=== PATIENT | female | born 1965 | race Caucasian/White ===

== ENCOUNTER 2018-04-25 10:42 | Emergency (ER) | payer BC ==
[~2018-04-25] VITALS: Ht 154.9 cm; Wt 80.5 kg
[~2018-04-25 10:42] MED LIST: CALCIUM + D 6001 TA1 PO; CLARITIN10 MG PO; FEMARA 2.5MG2.5 MG PO; IBUPROFEN400 MG PO; MULTIPLE VITAMI1 CAP PO; VITAMIN E1000 U/CAP PO; ZYRTEC10 MG PO
[2018-04-25 10:45] VITALS: BP 177/89
[2018-04-25] MEDS ORDERED: ALLEGRA 60MG TA60 MG PO (10:59)
[2018-04-25] MEDS ORDERED: CELEXA 20MG20 MG/TAB PO (11:04)
[2018-04-25] MEDS ORDERED: PRINIVIL5 MG PO (11:04)
[2018-04-25] MEDS ORDERED: OMEGA-3 1000 MG1 CAP PO (11:05)
[2018-04-25] MEDS ORDERED: ZOCOR 20MG20 MG PO (11:05)
[2018-04-25 11:09] LABS: BASO # 0.1 (0.0-0.2); BASO % 0.6 % (0.0-2.0); EOS # 0.6 (0.0-0.7); EOS % 6.3 % (0-4.0); GRAN # 5.8 (1.4-6.5); GRAN % 65.3 % (42.2-75.2); HEMATOCRIT 42.7 % (37.0-47.0); HEMOGLOBIN 13.9 g/dl (12.5-16.0); LYMPH # 1.7 (1.2-3.4); LYMPH % 19.6 % (20.0-51.0); MEAN CELL VOLUME 91 fl (80.0-100.0); MEAN CORPUSCULAR HEMOGLOBIN 30 pg (27.0-31.0); MEAN CORPUSCULAR HGB CONC 33 g/dl (33.0-37.0); MONO # 0.7 (0.1-0.6); MONO % 7.7 % (1.7-9.3); PLATELET COUNT 301 K/mm3 (130-400); RED BLOOD COUNT 4.69 M/mm3 (4.10-5.30); REDCELL DISTRIBUTION WIDTH-CV 14.5 % (11.5-14.5)
[2018-04-25 11:19] LABS: INR 0.9 (0.8-3.0); PROTHROMBIN TIME 10.4 SECONDS (9.7-12.8)
[2018-04-25 11:21] LABS: ALANINE AMINOTRANSFERASE 31 U/L (9-52); ALBUMIN 4.1 gm/dL (3.5-5.0); ALKALINE PHOSPHATASE 69 U/L (50-136); ANION GAP 14 mmol/L (7-16); AST,SGOT 35 U/L (15-37); BILIRUBIN,TOTAL 0.4 mg/dL (0.0-1.0); BLOOD UREA NITROGEN 15 mg/dL (7-17); CALCIUM 9.8 mg/dL (8.4-10.2); CARBON DIOXIDE 26 mmol/L (22-30); CHLORIDE 104 mmol/L (98-107); CREATININE, serum 0.73 mg/dL (0.52-1.25); GLUCOSE 142 mg/dL (74-106); PARTIAL THROMBOPLASTIN TIME 30.8 SECONDS (26.0-37.0); POTASSIUM 4.7 mmol/L (3.4-5.0); SODIUM 144 mmol/L (137-145); TOTAL PROTEIN 8.1 gm/dL (6.4-8.2)
[2018-04-25 11:37] LABS: TROPONIN-I < 0.012 ng/mL (0.000-0.034)
[2018-04-25 14:01] VITALS: PULSE 72; TEMP 97.8
== END 2018-04-25 13:55 | disposition home or self-care (01) ==
LOC: COL.ER 10:42
PROVIDERS: Family Medicine
DX: R09.1 Pleurisy (principal); Z85.3 Personal history of malignant neoplasm of breast
CPT/HCPCS: J1885

== ENCOUNTER 2018-05-11 08:38 | Day surgery (SDC) | payer BC ==
[~2018-05-11] VITALS: Ht 154.9 cm; Wt 79.9 kg
[~2018-05-11 08:38] MED LIST changes: +ALLEGRA 60MG TA60 MG PO; +CELEXA 20MG20 MG/TAB PO; +OMEGA-3 1000 MG1 CAP PO; +PRINIVIL5 MG PO; +ZOCOR 20MG20 MG PO
[2018-05-11 09:34] VITALS: BP 136/98; PULSE 108; TEMP 98.2
[2018-05-11] MEDS ORDERED: IBU600 MG PO (09:57)
[2018-05-11 10:34] VITALS: BP 139/91; PULSE 82; TEMP 98.8
[2018-05-11 10:49] VITALS: BP 115/84; PULSE 81
[2018-05-11 11:04] VITALS: BP 121/85; PULSE 74
[2018-05-11 11:19] VITALS: BP 120/81; PULSE 66
== END 2018-05-11 11:35 | disposition home or self-care (01) ==
LOC: SDCO 08:38
DX: Z12.11 Encounter for screening for malignant neoplasm of colon (principal); K64.0 First degree hemorrhoids; I10 Essential (primary) hypertension; E78.5 Hyperlipidemia, unspecified; E78.00 Pure hypercholesterolemia, unspecified; Z90.710 Acquired absence of both cervix and uterus; Z90.10 Acquired absence of unspecified breast and nipple; Z88.0 Allergy status to penicillin; Z88.5 Allergy status to narcotic agent; Z88.8 Allergy status to other drugs, medicaments and biological substances; Z85.3 Personal history of malignant neoplasm of breast
CPT/HCPCS: OP; J2250; J2405; J3010

== ENCOUNTER → 2019-01-25 | Outpatient (CLI) | payer BC ==
[~2019-01-25] MED LIST changes: +IBU600 MG PO
== END ==
LOC: COL.RAD 11:16
DX: C50.411 Malignant neoplasm of upper-outer quadrant of right female breast (principal)

== ENCOUNTER → 2019-09-07 | Outpatient (CLI) | payer BC ==
--- NOTE | 2019-09-05 13:24 | NUR ---
LEFT MESSAGE ON HER MACHINE FOR HER TO CALL BACK TODAY OR TOMORROW
[2019-09-07] VITALS (10 sets, daily range): BP systolic 79–138; BP diastolic 37–96; PULSE 74–136
[~2019-09-07] VITALS: Ht 154.9 cm; Wt 80.9 kg
[~2019-09-07] MED LIST changes: -CALCIUM + D 6001 TA1 PO; +CALCIUM 600MG+D1 TAB PO; +LUTEIN6 MG PO; +MELATIN 3 MG-11 TAB PO; +OMEGA-31 SGL PO; +UBIQUINOL PO; +VITAMIN E 400 U4001 PO
--- NOTE | 2019-09-07 10:00 | NUR ---
Called to US for pt passing out. Pt talking with Dr Singh on arrival. Pt pale and pasty and diaphoretic. Bp and o2 sat monitors placed on pt.
--- NOTE | 2019-09-07 10:01 | NUR ---
Pt color is less pasty continues to be diaphoretic. Pt states she feels weak.
--- NOTE | 2019-09-07 10:06 | NUR ---
pt feels better able to lift head off of pillow. Pt color is pink. Cool wash rag placed on pts neck. Pt wishes to proceed with procedure after talking with Dr Singh.
--- NOTE | 2019-09-07 10:11 | NUR ---
Fluid draining from left lung. Dr Singh states possibly not alot of fluid will come out of lung due to fluid being loculated.
--- NOTE | 2019-09-07 10:15 | NUR ---
Pt color back to normal. Pt reports feeling better. Tube was removed at 1013. Pt sitting on side of bed without difficulty.
--- NOTE | 2019-09-07 10:25 | NUR ---
Pt transported via wheelchair to get chest xray.
[2019-09-07 11:13] LABS: GLUCOSE,PLEURAL FLUID 96 mg/dL; TOTAL PROTEIN,PLEURAL FLUID 4.7 gm/dL
[2019-09-07 11:24] LABS: PLEURAL FLUID RBC 110000 /mm3 (0-0); PLEURAL FLUID WBC 3109 /mm3
[2019-09-07 11:29] LABS: PLEURAL FLUID APPEARANCE BLOODY; PLEURAL FLUID COLOR RED
[2019-09-07 12:36] LABS: CHOLESTEROL-BODY FLUID 82 mg/dL
== END ==
LOC: COL.RAD 08:49
PROVIDERS: Internal Medicine
DX: C50.919 Malignant neoplasm of unspecified site of unspecified female breast (principal); C79.51 Secondary malignant neoplasm of bone; J90 Pleural effusion, not elsewhere classified

== ENCOUNTER → 2019-10-18 | Outpatient (CLI) | payer BC ==
[~2019-10-18] VITALS: Ht 154.9 cm; Wt 81.0 kg
[~2019-10-18] MED LIST changes: +IBRANCE125 MG PO
[2019-10-18 11:51] VITALS: BP 124/91; PULSE 90
[2019-10-18 12:37] VITALS: BP 120/81; PULSE 82
== END ==
LOC: COL.RAD 11:16
DX: C50.411 Malignant neoplasm of upper-outer quadrant of right female breast (principal); C79.51 Secondary malignant neoplasm of bone; R07.9 Chest pain, unspecified

== ENCOUNTER → 2021-05-02 | Outpatient (CLI) | payer BC ==
[~2021-05-02] MED LIST changes: +L-GLUTAMINE500 M5 PO
== END ==
LOC: COL.RAD 12:14
DX: C50.411 Malignant neoplasm of upper-outer quadrant of right female breast (principal); C79.51 Secondary malignant neoplasm of bone; J90 Pleural effusion, not elsewhere classified; J98.11 Atelectasis; Z90.12 Acquired absence of left breast and nipple; Z87.81 Personal history of (healed) traumatic fracture
CPT/HCPCS: Q9967

== ENCOUNTER → 2021-09-20 | Outpatient (CLI) | payer BC ==
[~2021-09-20] VITALS: Ht 154.9 cm; Wt 70.0 kg
[2021-09-20 11:57] VITALS: BP 106/76; PULSE 105; TEMP 98
[2021-09-20 12:41] VITALS: BP 88/63; PULSE 86
== END ==
LOC: COL.RAD 11:46
DX: C50.411 Malignant neoplasm of upper-outer quadrant of right female breast (principal); J90 Pleural effusion, not elsewhere classified
CPT/HCPCS: 19804

== ENCOUNTER → 2021-11-06 | Outpatient (CLI) | payer BC ==
[~2021-11-06] VITALS: Ht 154.9 cm; Wt 69.0 kg
[~2021-11-06] MED LIST changes: +CLARITIN 1010 MG/TAB PO; +OXYCODONE
[2021-11-06 09:40] VITALS: BP 131/87; PULSE 110; TEMP 97.9
[2021-11-06 10:28] VITALS: BP 101/68; PULSE 91
== END ==
LOC: COL.RAD 09:13
DX: C50.411 Malignant neoplasm of upper-outer quadrant of right female breast (principal); J90 Pleural effusion, not elsewhere classified; Z95.9 Presence of cardiac and vascular implant and graft, unspecified
CPT/HCPCS: 19804

== ENCOUNTER 2021-11-26 14:16 | Inpatient (IN) | payer BC ==
[~2021-11-26] VITALS: Ht 154.9 cm; Wt 76.2 kg
[~2021-11-26 14:16] MED LIST changes: -OXYCODONE; +PERCOCET 325 MG1 TA2 PO
[2021-11-26] MEDS ORDERED: TYLENOL 500MG500 MG PO (14:51)
[2021-11-26 16:16] VITALS: BP 120/84; PULSE 93; TEMP 98.5
[2021-11-26 17:40] LABS: MEAN CELL VOLUME 93 fl (80.0-100.0); MEAN CORPUSCULAR HGB CONC 32 g/dl (33.0-37.0); MEAN PLATELET VOLUME 9.8 fl (7.4-10.4); PLATELET COUNT 339 K/mm3 (130-400); RED BLOOD COUNT 3.09 M/mm3 (4.10-5.30); REDCELL DISTRIBUTION WIDTH-CV 18.5 % (11.5-14.5)
[2021-11-26 17:41] LABS: HEMATOCRIT 28.8 % (37.0-47.0); HEMOGLOBIN 9.3 g/dl (12.5-16.0); MEAN CORPUSCULAR HEMOGLOBIN 30 pg (27-31)
[2021-11-26 17:53] LABS: ANISOCYTOSIS 1+; BAND 14 % (0-10); LYMPHOCYTE 11 % (20.0-51.0); NEUTROPHILS 70 % (42.0-75.2); PLATELET ESTIMATE NORMAL (NORMAL)
[2021-11-26 17:58] LABS: ALBUMIN 2.4 gm/dL (3.5-5.0); BILIRUBIN,TOTAL 0.5 mg/dL (0.2-1.2); CALCIUM 8.6 mg/dL (8.4-10.2); CREATININE, serum 0.57 mg/dL (0.57-1.11); POTASSIUM 3.2 mmol/L (3.5-4.5); TOTAL PROTEIN 6.2 gm/dL (6.2-8.1)
--- NOTE | 2021-11-26 19:26 | NUR ---
Patient sitting up in bed and having dinner at shift change. Patient's spouse in the room. No acute distress noted. Call light in reach.
[2021-11-26 20:32] VITALS: BP 108/75; PULSE 98; TEMP 98
[2021-11-26 20:44] VITALS: BP 108/75; PULSE 98; TEMP 98
--- NOTE | 2021-11-26 22:15 | NUR ---
Shift assessment completed. Patient A/Ox4. Patient currently on 3L oxygen via NC. Patient reports having some SOB but feels better with oxygen support. Patient states she tends to breath through mouth and requesting oxygen mask. Oxygen mask provided per patient request. Assiste patient to the bathroom to void. Patient very weak. 1x assist needed for ambulation. Scheduled meds given per JAN. Informed patient about NPO from midnight for possible procedure tomorrow. Patient verbalized understanding. Call light in reach. Will continue to monitor.
[2021-11-26 23:52] VITALS: BP 119/75; PULSE 95; TEMP 97.6
[2021-11-27 05:03] VITALS: BP 126/66; PULSE 92; TEMP 97.5
--- NOTE | 2021-11-27 06:30 | NUR ---
PT LAYING IN BED AWAKE, DENIES ANY PAIN. DOES NOT NEED ANYTHING AT THIS TIME. WILL RETURN FOR ASSESSMENT AND MORNING MEDICATIONS.
[2021-11-27 06:48] LABS: MEAN CELL VOLUME 95 fl (80.0-100.0); MEAN CORPUSCULAR HGB CONC 32 g/dl (33.0-37.0); MEAN PLATELET VOLUME 10.2 fl (7.4-10.4); PLATELET COUNT 363 K/mm3 (130-400); RED BLOOD COUNT 3.25 M/mm3 (4.10-5.30); REDCELL DISTRIBUTION WIDTH-CV 18.6 % (11.5-14.5)
[2021-11-27 06:57] LABS: CALCIUM 8.9 mg/dL (8.4-10.2); CREATININE, serum 0.59 mg/dL (0.57-1.11); MAGNESIUM 2.2 mg/dL (1.6-2.6); POTASSIUM 3.7 mmol/L (3.5-4.5)
[2021-11-27 07:03] LABS: HEMATOCRIT 30.7 % (37.0-47.0); HEMOGLOBIN 9.8 g/dl (12.5-16.0); MEAN CORPUSCULAR HEMOGLOBIN 30 pg (27-31)
[2021-11-27 07:42] LABS: BAND 12 % (0-10); LYMPHOCYTE 5 % (20.0-51.0); NEUTROPHILS 82 % (42.0-75.2); PLATELET ESTIMATE NORMAL (NORMAL)
[2021-11-27 07:43] LABS: ANISOCYTOSIS 1+; OVALOCYTES 1+
[2021-11-27 08:05] VITALS: BP 115/62; PULSE 96; TEMP 97.9
--- NOTE | 2021-11-27 09:27 | NUR ---
industrial services worker met with patient at bedside to discuss discharge plan. Patient reports that she lives at home with her Elver ([phone]) in [place]. Patient reports that she is mainly independent with her activities of daily living but her helps her with showering prn due to her breathing.Patient utilizes walking sticks to assist with ambulation when she feels weak. Patient reports that that she is not on oxygen at home. Patient reports that she does not have a DPOA-HC established at this time or a living will. Patient verbalizes that she would like a form to talk it over with her . Patient reports that she works at a [employer] and can have it notarized. Patient is planning on returning home post dc. Discharge plan: Home.
--- NOTE | 2021-11-27 11:22 | NUR ---
Leigh TORRES and I met with the patient. She was in bed and alert and oriented. Throughout the discussion, patient stated she wanted to get the current problem better controlled then will have an appointment with Dr. Smith to determine treatment options for her cancer. Patient requested we talk with her again once she meets with the finishing area supervisor because that will give her a better idea if she can get a drain placed or not and where to go from here.
[2021-11-27 12:53] VITALS: BP 116/71; PULSE 92; TEMP 97.9
[2021-11-27 17:02] VITALS: BP 109/70; PULSE 107; TEMP 97.7
--- NOTE | 2021-11-27 19:33 | NUR ---
PT HAD UNEVENTFUL DAY.
[2021-11-27 19:49] VITALS: BP 110/70; PULSE 110; TEMP 99
--- NOTE | 2021-11-27 22:08 | NUR ---
Patient sitting up in bed and finished dinner. Ate about 20% of dinner. Patient denies any pain or discomfort. Denies SOB or N/V. Patient currently on 5L oxygen via oxymask. Breathing even and unlabored. Patient spouse at bedside. Call light in reach. No further needs expressed. Will continue to monitor.
[2021-11-28] VITALS (13 sets, daily range): BP systolic 98–121; BP diastolic 63–84; PULSE 90–105; TEMP 97.7–98.4
--- NOTE | 2021-11-28 09:25 | NUR ---
Patient watching TV upon entering the room. Scheduled medications given. Shift assessment performed. Patient currently requiring 6L of O2 via oxymask. Desats upon exertion. Denies any pain, discomfort, or further needs a this time. Call light in reach. Fall percautions in place. VSS. Patient A&O.
[2021-11-28 09:29] LABS: MEAN CELL VOLUME 97 fl (80.0-100.0); MEAN CORPUSCULAR HGB CONC 31 g/dl (33.0-37.0); MEAN PLATELET VOLUME 9.7 fl (7.4-10.4); PLATELET COUNT 370 K/mm3 (130-400); RED BLOOD COUNT 3.09 M/mm3 (4.10-5.30); REDCELL DISTRIBUTION WIDTH-CV 18.8 % (11.5-14.5)
[2021-11-28 09:32] LABS: HEMOGLOBIN 9.2 g/dl (12.5-16.0); MEAN CORPUSCULAR HEMOGLOBIN 30 pg (27-31)
--- NOTE | 2021-11-28 09:35 | NUR ---
SPO2 93% ON 5 LPM NC AT REST.
[2021-11-28 09:44] LABS: CALCIUM 8.6 mg/dL (8.4-10.2); CREATININE, serum 0.57 mg/dL (0.57-1.11); POTASSIUM 3.2 mmol/L (3.5-4.5)
[2021-11-28 11:26] LABS: BAND 1 % (0-10); LYMPHOCYTE 8 % (20.0-51.0); NEUTROPHILS 85 % (42.0-75.2)
[2021-11-28 11:27] LABS: ANISOCYTOSIS 2+; HYPOCHROMIA 3+; PLATELET ESTIMATE NORMAL (NORMAL)
[2021-11-28] MEDS ORDERED: ZITHROMAX500 M2 PO (12:35)
[2021-11-28] MEDS ORDERED: PROVENTIL0.09 MG/A1 IH (12:36)
[2021-11-28] MEDS ORDERED: PREDNISONE20 MG PO (12:37)
[2021-11-28 12:46] LABS: PLEURAL FLUID RBC 4000 /mm3 (0-0); PLEURAL FLUID WBC 884 /mm3
[2021-11-28 13:01] LABS: PLEURAL FLUID APPEARANCE CLEAR; PLEURAL FLUID COLOR YELLOW
--- NOTE | 2021-11-28 14:30 | NUR ---
SPO2 ON 5 LPM 96%, O2 TURNED OFF X 10 MIN. SPO2 80% @ REST IN BED. O2 BACK ON @ 5 LPM. PT RECOVERED TO 93-94% WITHIN A MINIUTE OR TWO. PT RESP LESS LABORED.
--- NOTE | 2021-11-28 16:09 | NUR ---
RT notifed SW of patient needing to go home with 5L o2. SW met with the patient and patient's about which DME agency they would like to go with. Agreement made for [facility]. Contact made with [facility] and rep. Teresita states that they are very low on supplies and she does not have staff to deliver supplies. Teresita reports that they will not be able to help this patient at this time. [facility] contacted and referral information faxed. Patient states that she has met her deductible and OOP due to her chemo so cost will not be an issue.
--- NOTE | 2021-11-28 17:01 | NUR ---
Loc with [facility] calls to state that someone will be by to drop off a tank for the patient to discharge home with and that the oop expense for the patient would be $80.00. Notified patient's RN of the above.
--- NOTE | 2021-11-28 17:26 | NUR ---
Patient had an ok day. Had a thoracentesis, tolerated well. VSS. Patient deemed fit for discharge. Gama Cath DC'd, no signs of complications. Discharge education/instructions given. All questions answered. Patient denies any pain, discomfort, SOA, or further needs at this time. Currently requiring 5L of O2 via nasal cannula. Family to transport home.
== END 2021-11-28 18:00 | disposition home or self-care (01) | DRG 597 ==
LOC: MEDICAL 14:16
PROVIDERS: Physician Assistant; ADMIT Internal Medicine
PROC: 0W9B3ZZ Drainage of Left Pleural Cavity, Percutaneous Approach (ICD-10-PCS; principal; 2021-11-28)
DX: C50.912 Malignant neoplasm of unspecified site of left female breast (principal); J96.01 Acute respiratory failure with hypoxia; C79.51 Secondary malignant neoplasm of bone; J91.0 Malignant pleural effusion; C78.02 Secondary malignant neoplasm of left lung; C78.01 Secondary malignant neoplasm of right lung; I10 Essential (primary) hypertension; E78.5 Hyperlipidemia, unspecified; F32.A Depression, unspecified; Z66 Do not resuscitate; Z20.822 Contact with and (suspected) exposure to COVID-19
CPT/HCPCS: 99223-AI; 99233-AI; 99239; J1644; J7512

== ENCOUNTER 2021-12-02 10:27 | Inpatient (IN) | payer BC ==
[~2021-12-02] VITALS: Ht 154.9 cm; Wt 66.7 kg
[~2021-12-02 10:27] MED LIST changes: +PREDNISONE20 MG PO; +PROVENTIL0.09 MG/A1 IH; +TYLENOL 500MG500 MG PO; +ZITHROMAX500 M2 PO
[2021-12-11] VITALS (10 sets, daily range): BP systolic 103–147; BP diastolic 57–93; PULSE 55–102; TEMP 97.8–98.7
--- NOTE | 2021-12-11 09:40 | NUR ---
The patient ambulated back to [place] 4 independently using a steady gait and appeared to tolerate the activity well. Vital signs obtained. Consent signed. Port a catheter accessed with a 1 in diane needle with good blood return. Labs obtianed as ordered. Chest x-ray obtained. Call light is within reach. brought back to be at her bedside. Will continue to monitor the patient.
[2021-12-11 09:47] LABS: BASO % 0.2 % (0.0-2.0); EOS # 0.1 K/mm3 (0.0-0.7); EOS % 0.7 % (0.0-4.0); GRAN # 13.1 K/mm3 (1.4-6.5); HEMATOCRIT 37.8 % (37.0-47.0); HEMOGLOBIN 11.5 g/dl (12.5-16.0); LYMPH % 6.2 % (20.0-51.0); MEAN CELL VOLUME 97 fl (80.0-100.0); MEAN CORPUSCULAR HEMOGLOBIN 30 pg (27-31); MEAN CORPUSCULAR HGB CONC 30 g/dl (33.0-37.0); MEAN PLATELET VOLUME 9.2 fl (7.4-10.4); MONO # 1.1 K/mm3 (0.1-0.6); PLATELET COUNT 491 K/mm3 (130-400); RED BLOOD COUNT 3.88 M/mm3 (4.10-5.30); REDCELL DISTRIBUTION WIDTH-CV 18.8 % (11.5-14.5)
[2021-12-11] MEDS ORDERED: PROVENTIL0.09 MG/A1 IH (10:08)
[2021-12-11] MEDS ORDERED: ZITHROMAX500 M2 PO (10:09)
[2021-12-11 10:15] LABS: CALCIUM 9.1 mg/dL (8.4-10.2); CREATININE, serum 0.68 mg/dL (0.57-1.11); POTASSIUM 3.5 mmol/L (3.5-4.5)
[2021-12-11 10:58] LABS: ARTERIAL BLD GAS O2 SATURATION 78.8 % (92-100); ARTERIAL BLD GAS TCO2 CT 25.7; ARTERIAL BLOOD GAS BASE EXCESS 1.3 (-2-2); ARTERIAL BLOOD GAS HCO3 24.7 meq/L (22-26); ARTERIAL BLOOD GAS PCO2 34.9 mmHg (35-45); ARTERIAL BLOOD GAS pH 7.47 (7.35-7.45)
--- NOTE | 2021-12-11 14:36 | NUR ---
PT TO ROOM 322 PER BED WITH REPORT FROM LEX TORRES PACU @1400. PT IS A/O X3 WITH COARSE LUNG SOUNDS, IV TO PORT TO RIGHT CHEST. CHEST TUBE TO LEFT SIDE WITH BLOODY DRAINAGE IN CHEST TUBE CONTAINER TO AIR LOCK. VSS, AT BEDSIDE.
--- NOTE | 2021-12-11 18:59 | NUR ---
750 MLS DRAINAGE IN CHEST TUBE CONTAINER.
--- NOTE | 2021-12-11 19:08 | NUR ---
RECEIVED CHANGE OF SHIFT REPORT FROM DAY SHIFT RN.
[2021-12-12] VITALS: BP 119/79; PULSE 77; TEMP 98.1
[2021-12-12 03:34] VITALS: BP 105/69; PULSE 73; TEMP 98.4
--- NOTE | 2021-12-12 07:21 | NUR ---
CHANGE OF SHIFT REPORT GIVEN TO DAY SHIFT RNBRADLY.
[2021-12-12 08:00] VITALS: BP 117/67; PULSE 70; TEMP 98.2
--- NOTE | 2021-12-12 08:00 | NUR ---
PATIENT IS A&O AND SITTING UP IN BED WITH BREAKFAST TRAY. LEFT SIDE CHEST TUBE TO DD WITH PINK DRAINAGE NOTED, DSG IS CD&I. RIGHT LUNG HUITRON HAVE COURSE CRACKLES, LEFT UPPER LOBE CLEAR WITH FC HEARD IN BASES. NO COUGHING NOTED THIS AM. PATIENT ON 4L WHICH IS DOWN FROM THE PREVIOUS 6L YESTERDAY, SATS IN MID TO UPPER 90'S. PATIENT DENIES PAIN OR SOA. STAND BY ASSIST WITH ACTIVITY. NO C/O N/V. IV FLUIDS INFUSING VIA PUMP INTO RIGHT PORT. HEAD TO TOE ASSESSMENT COMPLETE. AM MEDS GIVEN. NO OTHER NEEDS AT THIS TIME. CALL LIGHT IN REACH.
--- NOTE | 2021-12-12 10:25 | NUR ---
Initial visit; Sally thanked Patient Care Secretary for looking in on her and offering comfort, prayer and God's blessings. Patient Care Secretary will keep Sally in her prayers and will follow up.
[2021-12-12 10:26] VITALS: BP 112/66; PULSE 76; TEMP 98.1
--- NOTE | 2021-12-12 13:32 | NUR ---
animal control licensing worker met with patient to discuss discharge plan. Patient lives with her Elver ([phone]) in [place]. Patient is mostly independent with her activities of daily living only receiving assistance from when she feels it's needed. Patient does not utilize any DME to assist with mobility. Patient was established with [facility] due her visit two weeks ago and that has been going well. PCO is Dr. Gutierrez and she utilizes [facility] for medications with no cost difficulty. Patient reports that she has not filled out the DPOA-HC form that she was given during her last stay. Patient is planning on returning home postdischarge with no concerns at this time. Discharge plan: Home with
[2021-12-12 16:28] VITALS: BP 11/75; BP 111/75; PULSE 95; TEMP 98.8
[2021-12-12 20:00] VITALS: BP 118/69; PULSE 105; TEMP 99.2
[2021-12-13] VITALS: BP 131/77; PULSE 68; TEMP 98.4
--- NOTE | 2021-12-13 01:48 | NUR ---
Scheduled medications given. Shift assessment performed. Chest tube in place with dependant drainage. Dressing CDI. Gama Cath accessed, flushes with good blood return. VSS. Patient A&O. Patient does state that she had slight chest pressure. Air movement noted in all lung horowitz. Will continue to monitor. Call light in reach.
[2021-12-13 03:54] VITALS: BP 128/70; PULSE 70; TEMP 98
--- NOTE | 2021-12-13 06:30 | NUR ---
Report received from MELISSA Nelson. PT in bed resting, denies needs, will continue to monitor.
--- NOTE | 2021-12-13 07:00 | NUR ---
Report received from MELISSA Nelson. Pt has IVF to [facility] PAC will finish bag and then INT per orders. Pt c/o presssure to left chest at 1/10 that she states is not pain. L chest tube site is CDI and occlusive, draining to water seal pink clear fluid. Taking PO well, using commode. Instructed on IS use, pt states she is coughing often and has minimal thin clear output. Will continue to monitor.
[2021-12-13 08:06] VITALS: BP 112/68; PULSE 85; TEMP 97.8
--- NOTE | 2021-12-13 09:59 | NUR ---
Follow-up visit; Patient thanked Price Analyst for looking in on her, visiting about her wesley and wishing her well and offering God's blessings.
[2021-12-13 11:13] VITALS: BP 118/69; PULSE 76; TEMP 98.6
[2021-12-13 15:18] VITALS: BP 114/68; PULSE 76; TEMP 98.8
--- NOTE | 2021-12-13 17:49 | NUR ---
Pt has done well over shift, resting in bed but able to get up with therapy and do ADLs. Resting, pain is well controlled with tylenol, saturations rechecked this evening and at 94% on 2LNC so doing well, pt doing IS hourly and able to get it to 750ml/hr. CHest tube output 180mls over shift. Will give report to nightshift nurse who will reusme care.
[2021-12-13 20:04] VITALS: BP 106/77; PULSE 80; TEMP 98.4
--- NOTE | 2021-12-13 22:59 | NUR ---
PATIENT DOING WELL THROUGHOUT SHIFT. DENIES PAIN. CHEST TUBE WITH OCCLUSIVE DRESSING WITH YELLOW DRAINAGE OUT. 2 L 02 VIA NC. SCHEDULED MEDICATIONS GIVEN. SCDS IN PLACE.
[2021-12-14 00:07] VITALS: BP 133/76; PULSE 69; TEMP 98
[2021-12-14 04:04] VITALS: BP 106/74; PULSE 75; TEMP 97.8
--- NOTE | 2021-12-14 08:15 | NUR ---
Patient up to the bathroom. Steady on her feet. Voided. Chest tube to Left chest to DD. Dressing CDI. Tyelnol as scheduled for pain. Pain to her Left chest, she reports not worse with movement. She using her IS regularly & correctly. Vss on O2. We did discussed her lower BP. Will Monitor
[2021-12-14 08:21] VITALS: BP 100/74; PULSE 76; TEMP 97.4
--- NOTE | 2021-12-14 10:01 | NUR ---
Patient up ambulating the halls with therapy.
--- NOTE | 2021-12-14 11:27 | NUR ---
rounded. Chest tube was removed & plan of care reviewed. Will monitor.
[2021-12-14 12:20] VITALS: BP 114/66; PULSE 79; TEMP 97.9
--- NOTE | 2021-12-14 14:18 | NUR ---
Patient reports pain much improved since chest tube removed & she reports she is able to get IS to 1000 consistently now. She is on her shell. She did well with lunch. No other needs at this time.
[2021-12-14 15:26] VITALS: BP 110/68; PULSE 87; TEMP 98.7
--- NOTE | 2021-12-14 17:16 | NUR ---
Patient resting in bed. Reports pain continues to improve. No needs. Will monitor.
[2021-12-14 19:51] VITALS: BP 119/73; PULSE 83; TEMP 98.3
--- NOTE | 2021-12-14 22:37 | NUR ---
PATIENT ALERT AND ORIENTED. DENIES PAIN. CHEST TUBE SITE CDI WITH OCCLUSIVE DRESSING. 2 L O2 MAINTAINED. PORTACATH TO R CHEST. SCHEDULED MEDS ADMINISTERED.
[2021-12-15 00:17] VITALS: BP 113/67; PULSE 71; TEMP 98
[2021-12-15 03:40] VITALS: BP 110/72; PULSE 67; TEMP 98
[2021-12-15 07:16] VITALS: BP 114/57; PULSE 73; TEMP 98.4
--- NOTE | 2021-12-15 09:01 | NUR ---
PT RESTING IN BED EATING BREAKFAST. DRESSING TO LEFT CHEST TUBE SITE CDI WITH GAUZE OVER SITE. PT DENIES PAIN OR NEEDS THIS AM. PT PLANNING ON DISCHARGING HOME LATER THIS DAY.
[2021-12-15 10:55] VITALS: BP 117/76; PULSE 90; TEMP 98.3
--- NOTE | 2021-12-15 13:22 | NUR ---
DISCHARGE INSTRUCTIONS REVIEWED WITH PT. QUESTIONS SOLICITED AND ANSWERED. PT LEFT UNIT BY WHEEL CHAIR WITH STAFF. PORT LOCKED WITH HEPARIN PER ORDERS.
== END 2021-12-15 12:44 | disposition home or self-care (01) | DRG 982 ==
LOC: SURG 12-05 10:00 → INPTSU 12-11 08:33 → SURG 12-11 08:33
PROVIDERS: Nurse Anesthetist, Certified Registered; ADMIT Surgery
PROC: 0W9B40Z Drainage of Left Pleural Cavity with Drainage Device, Percutaneous Endoscopic Approach (ICD-10-PCS; 2021-12-11)
PROC: 3E0L4GC Introduction of Other Therapeutic Substance into Pleural Cavity, Percutaneous Endoscopic Approach (ICD-10-PCS; principal; 2021-12-11 10:30)
DX: C50.912 Malignant neoplasm of unspecified site of left female breast (principal); C78.00 Secondary malignant neoplasm of unspecified lung; C79.51 Secondary malignant neoplasm of bone; J91.0 Malignant pleural effusion; I10 Essential (primary) hypertension; E78.5 Hyperlipidemia, unspecified; F32.A Depression, unspecified; Z79.891 Long term (current) use of opiate analgesic; Z90.710 Acquired absence of both cervix and uterus; Z88.4 Allergy status to anesthetic agent; Z88.0 Allergy status to penicillin; Z88.5 Allergy status to narcotic agent; J30.9 Allergic rhinitis, unspecified
CPT/HCPCS: A7041; A9284; J0690; J1100; J1170; J1644; J1650; J2250; J2370; J2405; J2704; J2795; J3010; J7050; J7120; J7512

== ENCOUNTER 2022-03-24 13:22 | Inpatient (IN) | payer BC ==
[~2022-03-24] VITALS: Ht 152.4 cm; Wt 63.4 kg
[2022-03-24] MEDS ORDERED: TYLENOL 325MG325 MG PO (14:34)
[2022-03-24] MEDS ORDERED: ALBUTEROL 0.5% INH (14:36)
[2022-03-24] MEDS ORDERED: ELIQUIS 5MG PO (14:37)
[2022-03-24] MEDS ORDERED: LIPITOR 10MG10 MG PO (14:38)
[2022-03-24] MEDS ORDERED: CELEXA 20MG20 MG/TAB PO (14:39)
[2022-03-24] MEDS ORDERED: VITAMIN D31000 IU PO (14:39)
[2022-03-24] MEDS ORDERED: NEURONTIN100 MG/CAP PO (14:40)
[2022-03-24] MEDS ORDERED: LASIX 40MG TABL40 MG PO (14:40)
[2022-03-24] MEDS ORDERED: MELATIN 3 MG-11 TAB PO (14:41)
[2022-03-24] MEDS ORDERED: GLUCOPHAGE500 MG/TAB PO (14:42)
[2022-03-24] MEDS ORDERED: DAZIDOX10 MG PO (14:43)
[2022-03-24] MEDS ORDERED: MIRALAX PA17 GM/Dose PO (14:44)
[2022-03-24] MEDS ORDERED: SENNA/DOCUSATE (14:48)
[2022-03-24] MEDS ORDERED: ALDACTONE 25MG25 M1 PO (14:49)
--- NOTE | 2022-03-24 15:43 | NUR ---
Pt arrived to IPR unit at approx 1530 from [facility]. Pt. arrived via wheelchair and was escorted by transportation service. Pt. transferred independently from wheelchair to bed. She currenlty denies pain or discomfort as she was given pain medication prior to IPR transfer. Admission intake and assessment completed. Orientation provided to room, call light, visitors.
[2022-03-24 16:00] VITALS: BP 94/65; PULSE 104; TEMP 98.3
--- NOTE | 2022-03-24 18:13 | NUR ---
Pt. resting in bed. Her is at bedside visiting. She rates her pain at 1/10 and denies the need for pain medication at this time. Pain is localized to her right hip. She denies further needs at this time. Call light is within her reach
[2022-03-24 18:24] VITALS: BP 97/57; PULSE 66; TEMP 98.1
--- NOTE | 2022-03-24 19:20 | NUR ---
PATIENT CALLED OUT IN PAIN. C/O MODERATE PAIN THAT STARTS MIDEPIGASTRIC AREA AND TRAVELS AROUND HER RIBS TO HER BACK. DENIES SOB AND CHEST PAIN. PRN ZORAN GIVEN PER PATIENT REQUEST ALONG WITH HS MEDS PER EMAR. VSS. OFFERED HEAT PACK WHICH WAS REFUSED.
[2022-03-24 19:30] VITALS: BP 88/68; PULSE 108; TEMP 97.8
--- NOTE | 2022-03-24 21:17 | NUR ---
CALL PLACED TO [facility], DISCUSSED POSSIBLE CHEST PAIN. NOW EKG AND TROPONIN ORDERED. CALL PLACED TO [facility] TO DISCUSS RESULTS. STARTED ON TELE AND ADDITIONAL ORDER FOR ZORAN 5MG IN PLACE IF NEEDED WELL TROPONIN TREND LABS. DISCUSSED WITH PATIENT WHO REFUSED ADDITIONAL ZORAN AND STATES HER PAIN IS AT A 2/10 NOW BUT C/O FEELING LOW ON O2 WHEN FALLING ASLEEP. SPO2 WAS 82 WHEN CHECKED. STARTED ON 2L 02 VIA NE. SP02 CURRENTLY 94, PATIENT RESTING IN BED, CALL LIGHT IN REACH, DENIES ADDITIONAL NEEDS AT THIS TIME.
[2022-03-24 23:38] VITALS: BP 107/71; PULSE 105; TEMP 98
[2022-03-25 01:44] VITALS: BP 99/58; PULSE 99; TEMP 97.8
--- NOTE | 2022-03-25 01:48 | NUR ---
PATIENT CALLED OUT IN SAME PAIN EARLIER. PRN ZORAN AND TYLENOL GIVEN. VSS. CALL TO [facility], NO NEW ORDERS AT THIS TIME.
[2022-03-25 03:19] VITALS: BP 106/72; PULSE 100; TEMP 97.7
--- NOTE | 2022-03-25 08:00 | NUR ---
Assessment complete. A&Ox3. Denies pain/nausea/shortness of breat. VS stable-slight hypotension noted. Spoke with Dr. Hdez about AM medications as lasix is due. States to give lasix as ordered and monitor. TELE reporting sinus tach. O2@2L/NC with adequate saturation. Bandaid to right chest-old portacath site CDI. Discussed 2000ml fluid restriction as well as measuring urine output for accurate I&Os. Verbalizes understanding. Call light in reach. Will monitor.
[2022-03-25 12:00] VITALS: BP 100/63; PULSE 88
--- NOTE | 2022-03-25 15:11 | NUR ---
TAMMY and SW student met with the patient to complete intake, as the patient is new to [facility]. The patient lives in [place] with her , Sergio Machuca" (ph#[phone]). She reports independence with ADLs before hospitalization and has a walker and home oxygen from [facility]. The patient's PCP is Dr. Winifred Gutierrez and she receives her medications from [facility]. The patient does not have a DPOA-HC in EMR, but she states that she does have one completed and that she designated her . She states that she needs to ask her to bring in the document. The patient states that she does have a wheelchair ramp, with just one step to get inside her home. TAMMY to continue to follow.
[2022-03-25 16:00] VITALS: BP 89/64; PULSE 112; TEMP 97.7
--- NOTE | 2022-03-25 16:47 | NUR ---
Patient states she has intermittent waves of nausea. Refused PM dose of metformin as she doesnt think she can eat dinner and is afraid to bottom her blood sugar out. Discussed checking bedside glucose later if able to tolerate PO. Verbalizes understanding. Call light in reach. Will monitor.
[2022-03-25 21:06] VITALS: BP 98/69; PULSE 107; TEMP 97.8
[2022-03-26 00:35] VITALS: BP 97/69; PULSE 109; TEMP 97.5
--- NOTE | 2022-03-26 01:42 | NUR ---
Received report from day shift. Patient alert and oriented x4. Assessment performed. PM meds administered. Patient resting in bed with call light near.
[2022-03-26 03:55] VITALS: BP 92/71; PULSE 111; TEMP 97.7
[2022-03-26 05:57] VITALS: BP 97/61; PULSE 108; TEMP 98
--- NOTE | 2022-03-26 07:23 | NUR ---
Shift report received from hourly shift manager RN. Pt. awake and resting supine in bed. Pt. denies nausea/vomiting this morning. Requesting PRN pain medication. Call light is within her reach
--- NOTE | 2022-03-26 07:46 | NUR ---
Pt. attempting to eat breakfast. Pt. is reporting nausea after drinking her milk. PRN Zofran given. Will continue to monitor
[2022-03-26 08:00] VITALS: BP 89/77; PULSE 103; TEMP 98.2
--- NOTE | 2022-03-26 10:42 | NUR ---
Pt leaving unit for PT. She reports her nausea is better. She reports pain at 1/10. Denies further needs at this time. Call light is within her reach
--- NOTE | 2022-03-26 16:13 | NUR ---
Pt. resting supine in bed. HOB elevated approx 30 degrees. Pt. reports no nausea, no pain. She denies further needs at this time. Call light is within her reach
[2022-03-26 17:08] VITALS: BP 89/61; PULSE 100; TEMP 98
--- NOTE | 2022-03-26 18:23 | NUR ---
Pt. reports feeling her nausea is better. No further episodes of vomiting at this time. Pt. declined her dinner tray. in the room to visit. Pt. denies further needs at this time. Call light is within her reach
--- NOTE | 2022-03-26 19:15 | NUR ---
RECEIVED CHANGE OF SHIFT REPORT FROM DAY SHIFT RN. PATIENT IN BED WITH EXIT ALARM ON AND CALL LIGHT WITHIN REACH.
[2022-03-27 05:21] VITALS: BP 93/59; PULSE 102; TEMP 98.1
--- NOTE | 2022-03-27 07:05 | NUR ---
Pt. resting supine in bed. HOB elevated approx 30 degrees. She denies pain. She denies nausea, vomiting, abd. pain. Reports she slept well during the night. Denies further needs during this time. Call light is within her reach
--- NOTE | 2022-03-27 07:15 | NUR ---
CHANGE OF SHIFT REPORT GIVEN TO DAY SHIFT RNAURELIO.
--- NOTE | 2022-03-27 10:16 | NUR ---
Initial visit; Patient thanked Beverage Manager for looking in on her and listening. Beverage Manager will keep Sally in her prayers and will continue to look in on her periodically.
--- NOTE | 2022-03-27 12:51 | NUR ---
Pt. resting in bed. She reports that her shoulders and right hip hurt. PRN pain medication given approx 1.5 hours ago. Offered ice to help with pain control - she declines at this time as she has another PT session this afternoon. Pt. assisted to commode using gait belt x 2 person assist. She feels that she is unable to stand on her own at this time d/t her pain. Pt. assisted back to bed using gait belt + 2 person assist. She denies further needs at this time. Call light is within her reach
--- NOTE | 2022-03-27 14:52 | NUR ---
Admission QIM scores were reviewed by the team. Code of 2 chosen for toilet hygiene was determined by team discussion to be the most usual performance for this patient during the assessment period. Code of 3 chosen for toileting transfers was determined by team discussion to be the most usual performance for this patient during the assessment period. Code of 3 chosen for sit to lying was determined by team discussion to be the most usual performance before interventions for this patient during the assessment period. Code of 3 chosen for lying to sitting on side of bed was determined by team discussion to be the most usual performance for this patient during the assessment period. Code of 3 for sit to stand was determined by team discussion to be the most usual performance for this patient during the assessment period. Code of 3 for chair/bed to chair transfers was determined by team discussion to be the most usual performance for this patient during the assessment period.--Jade Marks, PD
--- NOTE | 2022-03-27 14:54 | NUR ---
SW met with the patient to present and review the IPR Team Conference Note. The team plans to re-evaluate the patient next Thursday. The patient is in agreement to the plan. She had no concerns for SW at this time.
[2022-03-27 17:18] VITALS: BP 142/56; PULSE 103; TEMP 98
--- NOTE | 2022-03-27 17:45 | NUR ---
Pt. resting in bed. Has just completed her dinner. She denies having pain at this time. Denies further needs. Call light is within her reach
--- NOTE | 2022-03-27 19:11 | NUR ---
PT HAS HAD O2 ON AT 1L. WEANED OFF. WILL RECHECK O2 SAT LATER.
--- NOTE | 2022-03-27 19:43 | NUR ---
RT HERE. O2 SAT'S IN 80'S O2 BACK ON AT 2L.
--- NOTE | 2022-03-27 21:00 | NUR ---
PT RESTING IN BED. QUIET. DENIES PAIN AT THIS TIME. RT ANDIE CATH NOTED. NOT ACCESSED. SHIFT ASSESSMENT COMPLETED. NO COMPLAINTS OR NEEDS. CALL LIGHT IN REACH. BED ALARM SET.
[2022-03-28 05:24] VITALS: BP 91/38; BP 93/60; PULSE 96; TEMP 97.5
--- NOTE | 2022-03-28 06:23 | NUR ---
PT RESTING IN BED. AWAKE RELATES COUGHING ALITTLE MORE THAN USUAL WITH OCCASIONAL THICK SPUTUM. O2 2L NC.
--- NOTE | 2022-03-28 09:00 | NUR ---
Assisted pt up to the commode. She did okay with 1-2 assist, but was very weak. Pt did have bowel movement, once she was done, she was not able to stand at all. Required max 2 assist to get her from commode to bed. She was very hunched over and not able to straighten her back at all. Asked pt why and pt kept just stating that she wasn't sure why things weren't working right. Suggested pt rest for a while to regain strength prior to therapy
--- NOTE | 2022-03-28 09:18 | NUR ---
Pt grunting/moaning with experiration and labored at rest in bed. Pt has been doing this for past 1+ hours. Pain medication was given at earily time with morning medications, pt reports pain is only getting worse. Pt is now dry heaving. States she is not feeling nauseated, but cannot quit dry heaving. PRN nausea medication given to help. PT denies any other needs.
--- NOTE | 2022-03-28 09:45 | NUR ---
Discussed pt with Dr Hdez regarding pain and the dry heaving. PRN zofran and additional pain medication given.
--- NOTE | 2022-03-28 11:30 | NUR ---
Pt doing much better. She is rating her pain 2-3/10 at this time. Stated the 2nd dose of pain medication did help a little more, pain was 9/10. Pt also reports that the dry heaving has stopped. Discussed getting pt more pain medication around 1:30
--- NOTE | 2022-03-28 14:55 | NUR ---
TAMMY met with the patient to discuss setting up a patient/family meeting. The patient plans to contact her to see if a meeting on Thursday will work. SW to follow up with the patient on Thursday.
--- NOTE | 2022-03-28 17:00 | NUR ---
Pt finishing up eating dinner. Pt reports pain is 2/10 at this time and states it is tolerable. Pt denies any needs at this time, call light within reach
[2022-03-28 17:22] VITALS: BP 96/67; PULSE 107; TEMP 98.2
[2022-03-29 05:51] VITALS: BP 87/62; PULSE 98; TEMP 97.8
--- NOTE | 2022-03-29 06:45 | NUR ---
Report received, assumed care for day shift.
--- NOTE | 2022-03-29 07:45 | NUR ---
Assessment complete. A&Ox3. Rating pain 4/10 to right hip-constant throbbing-oxycodone given per dr order for current pain/pre therapy. Denies nausea. Short of breath with activity. O2@2L/NC. +2 edema to bilat lower ext. Plan of care discussed for this shift to include therapy/meds/calling for questions/concerns. Verbalizes understanding. Call light in reach. Will monitor.
--- NOTE | 2022-03-29 13:45 | NUR ---
Resting in bed eyes closed. No s/s of pain or discomfort noted.
--- NOTE | 2022-03-29 17:23 | NUR ---
Patient had an uneventful day. Participated in therapy. Received one dose of oxycodone for pain. Denied nausea. O2@3L/NC. Denies current needs. Call light in reach. Will monitor.
[2022-03-29 17:43] VITALS: BP 90/62; PULSE 99; TEMP 97.5
--- NOTE | 2022-03-29 18:20 | NUR ---
Patient states she doesnt like tomato soup and is requesting chicken. The kitchen is currently out of chicken soup. Patient states she doesnt want anything and will eat her fruit and crackers.
--- NOTE | 2022-03-29 18:23 | NUR ---
Report to MELISSA Richter
--- NOTE | 2022-03-29 19:31 | NUR ---
PT SITTING UP IN BED. FINISHING MEAL. NO NEEDS AT THIS TIME. CALL LIGHT IN REACH. BED ALARM SET.
[2022-03-30 05:40] VITALS: BP 89/66; PULSE 100; TEMP 97.4
--- NOTE | 2022-03-30 06:45 | NUR ---
appears to be dozing, shift report received from MELISSA Richter
--- NOTE | 2022-03-30 07:35 | NUR ---
sitting up in bed having breakfast
--- NOTE | 2022-03-30 08:05 | NUR ---
assisted up to bedside commode with slide board and 2 assist, voided large amount, full assessment completed, see interventions for further info
--- NOTE | 2022-03-30 10:19 | NUR ---
resting in bed with eyes closed
--- NOTE | 2022-03-30 14:13 | NUR ---
appears to be sleeping, in bed, resp quiet and easy
--- NOTE | 2022-03-30 16:55 | NUR ---
up to bedside commode, assited over to commode with slide board and then back to bed, tolerates well and is able to help
[2022-03-30 17:58] VITALS: BP 98/63; PULSE 98; TEMP 98.1
--- NOTE | 2022-03-30 18:45 | NUR ---
shift report given to MELISSA Richter
--- NOTE | 2022-03-30 21:00 | NUR ---
PT RESTING IN BED. ON IPAD. DENIES PAIN. RELATES STILL HAS DRY NONPRODUCTIVE COUGH. O2 2L NC. CALL LIGHT IN REACH. BED ALARM SET.
--- NOTE | 2022-03-30 22:15 | NUR ---
SEE MAR FOR ZOFRAN ODT GIVEN FOR NAUSEA.
--- NOTE | 2022-03-31 00:41 | NUR ---
PT C/O SHE COULDNT FIND CALL LIGHT. WEEPING. C/O HER LEGS HURTS LEVEL 8/10. SQUEEZING PAIN. SEE MAR FOR TYLENOL AND ROXICODONE. GOT A KPAD FOR PT. CALL LIGHT IN REACH. BED ALARM SET.
--- NOTE | 2022-03-31 01:09 | NUR ---
PEDAL PULSES PRESENT. LT FOOT SL COOLER THAN RT. RT LEG LEG MORE PAINFUL THAN LEFT. KPAD IN PLACE.
--- NOTE | 2022-03-31 01:49 | NUR ---
PT RESTING QUIETLY. NO EVIDENCE OF PAIN.
--- NOTE | 2022-03-31 02:27 | NUR ---
PT RESTING QUIETLY. NO DISTRESS.
[2022-03-31 05:50] VITALS: BP 86/58; PULSE 100; TEMP 97.6
--- NOTE | 2022-03-31 07:48 | NUR ---
Shift report received from automotive quality manager RN. Pt. requesting PRN pain medications for left hip/leg pain 07/09. Also requesting to use commode. Pt. assisted to commode x 2 assist and then assisted back to bed. PRN pain medication given as requested. She denies further needs at this time. Call light is within her reach
[2022-03-31 10:53] LABS: MEAN CELL VOLUME 82 fl (80.0-100.0); MEAN CORPUSCULAR HGB CONC 31 g/dl (33.0-37.0); MEAN PLATELET VOLUME 9.9 fl (7.4-10.4); PLATELET COUNT 214 K/mm3 (130-400); RED BLOOD COUNT 3.79 M/mm3 (4.10-5.30); REDCELL DISTRIBUTION WIDTH-CV 21.6 % (11.5-14.5)
[2022-03-31 11:00] LABS: CALCIUM 8.6 mg/dL (8.4-10.2); CREATININE, serum 0.7 mg/dL (0.57-1.11); POTASSIUM 4.8 mmol/L (3.5-4.5)
[2022-03-31 11:03] LABS: HEMATOCRIT 30.9 % (37.0-47.0); HEMOGLOBIN 9.5 g/dl (12.5-16.0); MEAN CORPUSCULAR HEMOGLOBIN 25 pg (27-31)
--- NOTE | 2022-03-31 11:17 | NUR ---
Kandy from lab calling to report critical lab value: Sodium:116, Chloride 80. Dr. Hdez notified
[2022-03-31 11:31] LABS: BAND 5 % (0-10); LYMPHOCYTE 6 % (20.0-51.0); NEUTROPHILS 74 % (42.0-75.2); NUCLEATED RED BLOOD CELL 5 (0-6)
[2022-03-31 11:32] LABS: HYPOCHROMIA 3+; MICROCYTOSIS 1+; OVALOCYTES 1+; PLATELET ESTIMATE NORMAL (NORMAL); POLYCHROMASIA 1+
--- NOTE | 2022-03-31 13:06 | NUR ---
Pt resting in bed with HOB elevated approx 30 degrees. IV site initiated in right AC with 3% Sodium Chloride solution infusing as ordered. Pt. reports feeling tired; encouraged pt. to rest. She denies pain or discomfort at this time. Call light is within her reach
--- NOTE | 2022-03-31 14:45 | NUR ---
TAMMY met with the patient and her , Dex, to follow up after the weekend. The patient and her state that they are okay. Dex was interested in knowing why the patient has an IV now and what she is receiving. TAMMY notified Dr. Hdez. TAMMY discussed setting up a patient/family meeting. A patient/family meeting was scheduled for this Thursday, 04/02, at 1000. Dex states that he will probably not be able to be here in person and to call him on his cell phone. TAMMY updated IPR Director.
--- NOTE | 2022-03-31 14:55 | NUR ---
Pt. resting supine in bed. HOB elevated approx 30 degrees. Her is the bedside. She denies pain or discomfort. Continues to report feeling tired today. IVF continues infusing to IV site Rt. ac. She denies further needs at this time. Call light is within her reach
[2022-03-31 16:05] LABS: CALCIUM 8.8 mg/dL (8.4-10.2); CREATININE, serum 0.72 mg/dL (0.57-1.11)
--- NOTE | 2022-03-31 16:08 | NUR ---
Naresh from lab called to inform of critical lab results: Na [address] Hdez aware
[2022-03-31 17:07] VITALS: BP 94/65; PULSE 102; TEMP 98.1
--- NOTE | 2022-03-31 17:22 | NUR ---
Dinner tray brought to room. Pt. declining her tray stating that she does not feel like eating. Encouraged pt. to try to eat. Crackers available on her bedside table
--- NOTE | 2022-03-31 18:45 | NUR ---
ACCESSED RIGHT PORTACATH WITH 1 INCH ON FIRST ATTEMPT AND WITHOUT ANY DIFFICULTIES. GOOD BLOOD RETURN AND FLUSHES EASILY. CENTRAL LINE DRESSING INPLACE. PATIENT TOLERATED WELL.
--- NOTE | 2022-03-31 20:25 | NUR ---
RECEIVED CHANGE OF SHIFT REPORT FROM DAY SHIFT RN. BED EXIT ALARM ON, CALL LIGHT WITHIN REACH. OXYGEN CONTINUES. LAB DRAWN PER ANDIE CATH, ACCESSED TODAY WITH GOOD BLOOD RETURN.
[2022-03-31 20:33] LABS: CALCIUM 8.3 mg/dL (8.4-10.2); CREATININE, serum 0.61 mg/dL (0.57-1.11); POTASSIUM 4.4 mmol/L (3.5-4.5)
--- NOTE | 2022-03-31 21:13 | NUR ---
HOSPITALIST INFORMED OF RESULTED LABS FOR Na AND CHLORIDE. INFORMED PATIENT LETHARGIC AND UNABLE TO STAY AWAKE TO VOID, VERBAL ORDER GIVEN TO STR CATH FOR URINE SPECIMEN.
--- NOTE | 2022-04-01 03:04 | NUR ---
NO INCONTINENT URINE OBSERVED, NO URINE OUTPUT IN PURE WICK SUCTION CANNISTER/TUBING. PATIENT DENIES URGE TO VOID.
[2022-04-01 03:11] LABS: CALCIUM 8.3 mg/dL (8.4-10.2); CREATININE, serum 0.58 mg/dL (0.57-1.11); POTASSIUM 4.4 mmol/L (3.5-4.5)
--- NOTE | 2022-04-01 03:39 | NUR ---
INFORMED PROVIDER OF PATIENT'S LOW URINE OUTPUT SO FAR THIS SHIFT, NO NEW ORDERS GIVEN.
[2022-04-01 05:40] VITALS: BP 90/66; PULSE 98; TEMP 98
--- NOTE | 2022-04-01 06:54 | NUR ---
CHANGE OF SHIFT REPORT GIVEN TO DAY SHIFT RNAURELIO.
--- NOTE | 2022-04-01 07:00 | NUR ---
Shift report received from night warehouse selector RN. Pt. awake/alert. Lying supine in bed reading her tablet. HOB elevated approx 30 degrees. Right chest port flushed by night warehouse selector RN. IVF 3% Sodium Chloride has completed infusion. Per pharmacy, order was discontinued after 1 bag infused. Pt. denies pain or discomfort. No further needs at this time. Call light is within her reach
[2022-04-01 08:04] LABS: PATHOLOGY DIFF REVIEW OK
--- NOTE | 2022-04-01 09:24 | NUR ---
Pt. resting supine in bed. HOB elevated approx 30 degrees. Pt. is more alert this morning. Lab here approx 1 hr ago - port right chest flushes well with blood return noted. She denies pain or discomfort. Denies further needs. Call light is within her reach
[2022-04-01 09:44] LABS: MEAN CELL VOLUME 83 fl (80.0-100.0); MEAN CORPUSCULAR HGB CONC 30 g/dl (33.0-37.0); PLATELET COUNT 169 K/mm3 (130-400); RED BLOOD COUNT 3.61 M/mm3 (4.10-5.30); REDCELL DISTRIBUTION WIDTH-CV 21.8 % (11.5-14.5)
[2022-04-01 09:47] LABS: HEMATOCRIT 29.9 % (37.0-47.0); MEAN CORPUSCULAR HEMOGLOBIN 25 pg (27-31)
[2022-04-01 09:57] LABS: CALCIUM 8.3 mg/dL (8.4-10.2); CREATININE, serum 0.59 mg/dL (0.57-1.11); MAGNESIUM 1.6 mg/dL (1.6-2.6); POTASSIUM 4.1 mmol/L (3.5-4.5)
[2022-04-01 10:10] LABS: BAND 3 % (0-10); BASOPHIL 1 % (0-2); EOSINOPHIL 1 % (0-4); LYMPHOCYTE 5 % (20.0-51.0); MYELOCYTE 3 % (0-0); NEUTROPHILS 76 % (42.0-75.2); NUCLEATED RED BLOOD CELL 1 (0-6)
[2022-04-01 10:12] LABS: HYPOCHROMIA 3+; MICROCYTOSIS 1+; OVALOCYTES 1+; POIKILOCYTOSIS 2+; POLYCHROMASIA 1+; SCHISTOCYTES 1+; TARGET CELLS 1+
--- NOTE | 2022-04-01 10:30 | NUR ---
Charles from lab called to report the following lab results: Sodium [address] Hdez notified
--- NOTE | 2022-04-01 12:50 | NUR ---
Pt tearful and reporting left hip pain. PRN pain medication given approx 1 hr ago. Pt. repositioned from bed to recliner. Ice pack given to help with pain relief. Pt. reports feeling better after getting out of bed. Will continue to monitor
--- NOTE | 2022-04-01 13:30 | NUR ---
Kandy notified about pt. status. She will consult with Dr. Benites
[2022-04-01 17:14] VITALS: BP 86/66; PULSE 99; TEMP 98.1
--- NOTE | 2022-04-01 19:31 | NUR ---
RECEIVED CHANGE OF SHIFT REPORT FROM DAY SHIFT RN. PATIENT RESTING IN BED, EXIT ALARM ON, CALL LIGHT WITHIN REACH.
[2022-04-02 04:06] VITALS: BP 92/73; PULSE 95; TEMP 97.6
[2022-04-02 06:58] LABS: CALCIUM 8.6 mg/dL (8.4-10.2); CREATININE, serum 0.57 mg/dL (0.57-1.11); MAGNESIUM 1.7 mg/dL (1.6-2.6); POTASSIUM 4.1 mmol/L (3.5-4.5)
--- NOTE | 2022-04-02 07:12 | NUR ---
CHANGE OF SHIFT REPORT GIVEN TO DAY SHIFT RNPURNIMA.
[2022-04-02 08:01] LABS: PATHOLOGY DIFF REVIEW OK
--- NOTE | 2022-04-02 10:00 | NUR ---
Assessment completed, alert/oriented, vital signs stable, moderate pain to right hip/ chronic, family meeting was held at 1000 to re-establish patient an family goals and plan of care, Fentanyl patch was ordered/ changed patient to general diet to help encourage PO intake/ oncology consulted and contacted to touch base, in the room for meeting
--- NOTE | 2022-04-02 14:34 | NUR ---
TAMMY and SW student attended the patient/family meeting. The patient's , Dex, at bedside. Also present was IPR Director, PT, OT, and Dr. Hdez. Dr. Hdez began by explaining the purpose of the meeting and then provided a clinical update. Due to the patient's medical complexities, it has made it harder for the patient to work with therapy. PT/OT discussed the patient's progress and how the patient has kind of gone backwards since being here, instead of making gains. The patient and her verbalized understanding. Dex states that he would like the patient to be able to come home upon discharge. He states that he works long shifts and is not always able to be home with the patient. He has thought about hiring private duty caregivers and possibly selling their house and moving into a handicap accessible home. The team plans to re-evaluate the patient next Thursday. No discharge date has been set yet. The patient's is in agreement to the plan. He also expressed how he would be interested in doing a home assessment, when it gets closer to discharge. The team answered all questions. SW provided the patient with the IPR Team Conference Note. SW to continue to follow.
[2022-04-02 17:11] VITALS: BP 98/57; PULSE 109; TEMP 97.6
--- NOTE | 2022-04-02 20:30 | NUR ---
PT RESTING IN BED. PAIN LEVEL 2/10 AT THIS TIME. QUIET TONIGHT. CALL LIGHT IN REACH. BED ALARM AST
--- NOTE | 2022-04-03 02:18 | NUR ---
PT SLEEPING AT THIS TIME. O2 CONTINUES AT 4L NC. NO DISTRESS.
[2022-04-03 05:50] VITALS: BP 100/72; PULSE 102; TEMP 97.7
[2022-04-03 06:13] LABS: MEAN CELL VOLUME 87 fl (80.0-100.0); MEAN CORPUSCULAR HGB CONC 29 g/dl (33.0-37.0); MEAN PLATELET VOLUME 10.4 fl (7.4-10.4); PLATELET COUNT 176 K/mm3 (130-400); RED BLOOD COUNT 3.72 M/mm3 (4.10-5.30); REDCELL DISTRIBUTION WIDTH-CV 22.5 % (11.5-14.5)
--- NOTE | 2022-04-03 06:13 | NUR ---
BLOOD DRAWN PER ANDIE CATH FOR LAB.
[2022-04-03 06:21] LABS: HEMATOCRIT 32.3 % (37.0-47.0); HEMOGLOBIN 9.4 g/dl (12.5-16.0); MEAN CORPUSCULAR HEMOGLOBIN 25 pg (27-31)
[2022-04-03 06:30] LABS: CALCIUM 8.8 mg/dL (8.4-10.2); CREATININE, serum 0.59 mg/dL (0.57-1.11); POTASSIUM 4.4 mmol/L (3.5-4.5)
[2022-04-03 07:20] LABS: ANISOCYTOSIS 3+; BAND 5 % (0-10); HYPOCHROMIA 3+; LYMPHOCYTE 12 % (20.0-51.0); NEUTROPHILS 74 % (42.0-75.2); PLATELET ESTIMATE NORMAL (NORMAL)
--- NOTE | 2022-04-03 17:42 | NUR ---
PT IS DROWSY ET HAS SLEPT THIS AFTERNOON. PT STATES THAT SHE WOULD LIKE TO SLEEP MORE, IS ENCOURAGED BY STAFF TO EAT DINNER. HR IS NOTED TO BE TACHY @ 104 WHEN VITAL SIGNS ARE TAKEN. PT STATES THAT SHE JUST FEELS SLEEPY R/T WORKING WITH THERAPY TODAY. HOB IS ELEVATED FOR PT TO EAT ET SWALLOW PILLS. PT HAS ONLY HAD 720 ML OF LIQUIDS TO DRINK SINCE 0630 THIS MORNING. PT ENCOURAGED TO DRINK MORE BEFORE BEDTIME, DRINKS APPLE JUICE WITH DINNER. RESPIRATIONS UNLABORED ON 2L O2 NC. BED ALARM IS ON. CALL LIGHT WITHIN REACH.
[2022-04-03 17:53] VITALS: BP 95/53; PULSE 104; TEMP 98
--- NOTE | 2022-04-03 19:59 | NUR ---
PT SLEEPY BUT WAKES TO SPEECH. ANSWERS QUESTION WITH OCCASIONAL DELAYED RESPONSE. FLAT AFFECT. ALOPECIA LT SCALP. ANDIE CATH ACCESSED AND INTACT. NO PAIN AT THIS TIME. RETURNS TO SLEEP. CALL LIGHT IN REACH. BED ALARM SET.
--- NOTE | 2022-04-04 05:24 | NUR ---
PT HAS HAD AN UNEVENTFUL NIGHT.
[2022-04-04 05:34] VITALS: BP 102/45; PULSE 101; TEMP 98.2
[2022-04-04 06:01] LABS: MEAN CELL VOLUME 86 fl (80.0-100.0); MEAN CORPUSCULAR HGB CONC 29 g/dl (33.0-37.0); MEAN PLATELET VOLUME 9.8 fl (7.4-10.4); PLATELET COUNT 155 K/mm3 (130-400); RED BLOOD COUNT 3.81 M/mm3 (4.10-5.30); REDCELL DISTRIBUTION WIDTH-CV 22.5 % (11.5-14.5)
--- NOTE | 2022-04-04 06:10 | NUR ---
OBTAINED BLOOD FOR LAB FROM [facility] GOOD BLOOD RETURN. FLUSHES WELL.
[2022-04-04 06:11] LABS: HEMATOCRIT 32.8 % (37.0-47.0); HEMOGLOBIN 9.4 g/dl (12.5-16.0); MEAN CORPUSCULAR HEMOGLOBIN 25 pg (27-31)
[2022-04-04 06:30] LABS: CALCIUM 9.1 mg/dL (8.4-10.2); CREATININE, serum 0.61 mg/dL (0.57-1.11); POTASSIUM 5.2 mmol/L (3.5-4.5)
[2022-04-04 06:45] LABS: ANISOCYTOSIS 2+; BAND 1 % (0-10); EOSINOPHIL 1 % (0-4); HYPOCHROMIA 3+; LYMPHOCYTE 8 % (20.0-51.0); NEUTROPHILS 78 % (42.0-75.2); NUCLEATED RED BLOOD CELL 3 (0-6); PLATELET ESTIMATE NORMAL (NORMAL)
--- NOTE | 2022-04-04 08:00 | NUR ---
Patient sitting up in bed, A&Ox3. VSS 2L NC O2, no reported SOB. Reports pain in right hip and requesting pain medication. Port CDI. Patient reports not having much of an appetite. Patient independent with feeds. Call light within reach. Bed alarm on
--- NOTE | 2022-04-04 14:53 | NUR ---
IPR Director notified TAMMY that since Thursday, the patient has not made much progress. She is needing assistance with transfers and PT is working on wheelchair mobility with the patient. With the patient not making any progress, there is concern that the patient's insurance will not approve any more days on the next review date. TAMMY contacted the patient's , Dex, to update and to inquire what his thoughts are about discharge plan. Dex states that he would like to get the patient home as soon as possible, but is unsure of what to do. He states that he is about to start his 40 hour shift and states that he can be at the hospital on Thursday at 1000. He would like to meet with SW or IPR Director to go over the options. TAMMY notified IPR Director.
--- NOTE | 2022-04-04 17:18 | NUR ---
Patient resting in bed with kpad on abdomen. Easily awakened with verbal command. A&Ox3. VSS. Port CDI. Pain in right hip, pain medication given as requested. Call light within reach. Bed alarm on
[2022-04-04 17:19] VITALS: BP 95/65; PULSE 107; TEMP 98.6
[2022-04-05 06:04] VITALS: BP 89/67; PULSE 103; TEMP 97.3
--- NOTE | 2022-04-05 06:12 | NUR ---
no po pain meds requested tonight, fentanyl patch in place. up to BSC with assist x1-2 using slide board, no BM since 04/02, but refused any prn bowel movers, is on scheduled senna bid. no c/o abd pain or discomfort. portacath flushed with good blood return, no labs ordered for this am. requiring 4L O2 per NC to maintain sats @92%
--- NOTE | 2022-04-05 07:00 | NUR ---
Shift report received from analytics intern RN. Pt. awake, sitting up in bed. She denies pain or discomfort. Denies further needs at this time. Call light is within her reach
--- NOTE | 2022-04-05 14:00 | NUR ---
Nurse in to assist pt to bedside commode. Pt. noted to have an foam dressing on her lower back. Pt. stated she isn't sure why she has a dressing on. Dressing removed. Pt. noted to have redness and a shallow open area with pink wound bed to right lower spine. Open area is approx 0.5cm x 0.5cm. Allevyn dressing reapplied over open area. Air mattress placed over bed mattress. Pt. also reported to nurse that her nostrils feel irritated from nasal cannula use. RT was contacted; O2 now attached to humidifier. Pt. denies further needs at this time. Call light is within her reach
[2022-04-05 17:04] VITALS: BP 90/65; PULSE 104; TEMP 98.2
[2022-04-06 05:41] VITALS: BP 83/49; PULSE 83; TEMP 97.2
--- NOTE | 2022-04-06 06:47 | NUR ---
Shift report received from night guard RN. Pt. resting in supine in bed. HOB up 30 degrees. Remains on 02 with humidifier. Call light is within her reach
--- NOTE | 2022-04-06 09:06 | NUR ---
Pt. resting in bed. Air mattress is on. Dsg to lower back is CDI. Portcath drg is CDI. She denies pain or discomfort. Call light is within her reach
--- NOTE | 2022-04-06 14:53 | NUR ---
Pt. resting in bed. in room visiting. Pt. continues on O2 at 3L/nc with humidifier. Ruben dsg CDI to lower back. She denies pain or discomfort at this time. Call light is within her reach
[2022-04-06 17:14] VITALS: BP 85/56; PULSE 63; TEMP 97.3
--- NOTE | 2022-04-06 19:44 | NUR ---
RECEIVED CHANGE OF SHIFT REPORT FROM DAY SHIFT RN. EXIT ALARMS ON WHEN UP IN CHAIR OR IN BED. CALL LIGHT WITHIN REACH. DENIES ANY NEEDS OR CONCERNS AT THIS TIME.
--- NOTE | 2022-04-07 01:43 | NUR ---
DISCUSSED WITH PATIENT, PASSING LOOSE STOOLS. AGREED TO HAVE STOOL SOFTENERS PUT TO PRN, INSTEAD OF SCHEDULED.
--- NOTE | 2022-04-07 05:33 | NUR ---
PATIENT REPORTING SOA AFTER SEVERAL MINUTES OF EXCESSIVE COUGHING WITH PATIENT REQUESTING R.T. TREATMENT. INFORMED R.T OF PATIENT'S REQUEST FOR R.T. TREATMENT.
[2022-04-07 05:40] VITALS: BP 92/68; PULSE 105; TEMP 97.6
--- NOTE | 2022-04-07 07:01 | NUR ---
CHANGE OF SHIFT REPORT GIVEN TO DAY SHIFT RNXIOMARA.
[2022-04-07 07:06] LABS: MEAN CELL VOLUME 84 fl (80.0-100.0); MEAN CORPUSCULAR HGB CONC 30 g/dl (33.0-37.0); MEAN PLATELET VOLUME 9.9 fl (7.4-10.4); PLATELET COUNT 206 K/mm3 (130-400); REDCELL DISTRIBUTION WIDTH-CV 23.4 % (11.5-14.5)
[2022-04-07 07:08] LABS: HEMOGLOBIN 9.3 g/dl (12.5-16.0); MEAN CORPUSCULAR HEMOGLOBIN 25 pg (27-31)
[2022-04-07 07:21] LABS: CALCIUM 9.2 mg/dL (8.4-10.2); CREATININE, serum 0.61 mg/dL (0.57-1.11); MAGNESIUM 1.6 mg/dL (1.6-2.6); POTASSIUM 4.7 mmol/L (3.5-4.5)
[2022-04-07 07:54] LABS: BAND 2 % (0-10); HYPOCHROMIA 1+; LYMPHOCYTE 9 % (20.0-51.0); NEUTROPHILS 86 % (42.0-75.2); POIKILOCYTOSIS 1+; SCHISTOCYTES 1+; TEAR DROP CELLS 1+
--- NOTE | 2022-04-07 09:04 | NUR ---
PT UP WITH THERAPY, EATING DRINKING WITH NO N/V REPORTED. PT HAS DIFFICULT TIME FINDING WORDS PERIODICALLY. FLUID RESTRICTION IN PLACE WITH 500 MLS FREE WATER. PT VERBALIZED UNDERSTANDING.
--- NOTE | 2022-04-07 10:20 | NUR ---
Visited w/ pt & to follow up from the Family Meeting to inquire as to what they were wanting to do regarding d/c. stated he wanted to have a home assessment. Told him that can be done but inquired if he was going to take her home & provide 24/7 care, which he is unable to do d/t to his work schedule & had not looked into hiring. We talked about doing SNF since she would get more therapy but not at the intensity of IPR. It tood them a wile but were eventually receptive to this. 's first choice is [facility] & then [facility]. Told him that director would let SW know. They had no other questions/concerns at this times.
--- NOTE | 2022-04-07 15:49 | NUR ---
lasting floorworker met with patient to discuss SNF post IPR stay. Patient is in agreement with this and would like referrals faxed to [facility]. Notified patient that her medical care would be covered however she would have to pay room and board out of pocket. Patient verbalized her understanding and would still like referrals faxed. SNF referrals sent to : [facility]
--- NOTE | 2022-04-07 17:15 | NUR ---
DEACESSED PORT AFTER FLUSHING WITH HEPARIN PER ROUTINE.
[2022-04-07 18:00] VITALS: BP 98/64; PULSE 110; TEMP 97.9
--- NOTE | 2022-04-07 18:59 | NUR ---
RECEIVED CHANGE OF SHIFT REPORT FROM DAY SHIFT RN.
--- NOTE | 2022-04-07 19:18 | NUR ---
PATIENT RESTING IN BED, FAMILY AT BEDSIDE. EXIT ALARM ON WITH CALL LIGHT WITHIN REACH.
--- NOTE | 2022-04-08 01:58 | NUR ---
PATIENT HAD COUGHING EPISODE, STATING SHE FELT SOA, OBSERVED NASAL CANNULA OFF TO SIDE IN BED, PUT NC BACK TO NARES FOR OXYGENATION, O2 A 3 LPM.
--- NOTE | 2022-04-08 04:14 | NUR ---
REQUESTED AND GIVEN PAIN MED, SEE MAR FOR MEDS GIVEN.
--- NOTE | 2022-04-08 05:02 | NUR ---
REQUESTED AND PLACED KPAD TO RIGHT LEG. NO OTHER NEEDS REPORTED AT THIS TIME.
[2022-04-08 06:04] VITALS: BP 107/58; PULSE 108; TEMP 97
--- NOTE | 2022-04-08 07:25 | NUR ---
CHANGE OF SHIFT REPORT GIVEN TO DAY SHIFT RNDANA.
--- NOTE | 2022-04-08 08:40 | NUR ---
PT LAYING SUPINE IN BED WITH 02 VIA NC 3 LIT ON. PT EATING BREAKFAST. PT STATES THAT SHE DOES NOT WANT TO HAVE PAIN PATCH THIS MORNING. STATES THAT SHE WOULD RATHER TAKE THE PILLS. PT STATES NO PAIN AT THIS TIME. "I JUST HAD MY PAIN MEDICATION THIS MORNING." PT STATES NO OTHER NEEDS AT THIS TIME. CALL LIGHT IS WITHIN REACH.
--- NOTE | 2022-04-08 10:15 | NUR ---
PT OFF FLOOR FOR GROUP THERAPY
--- NOTE | 2022-04-08 11:18 | NUR ---
PT RETURNED TO FLOOR FROM THERAPY.
--- NOTE | 2022-04-08 14:08 | NUR ---
Spoke with patient and patients Dex at bedside. Dex confrims that they are ok with paying for SNF out of pocket. Confirmed that [facility] is their preferred choice but he is open to sending referrals to the surrounding areas. Notified them that at this time [facility] is running low on beds but that i would still send a referral there.
--- NOTE | 2022-04-08 16:44 | NUR ---
Additional referrals sent to: [facility]
[2022-04-08 17:30] VITALS: BP 93/62; PULSE 106; TEMP 98
--- NOTE | 2022-04-08 18:26 | NUR ---
PT LAYING SUPINE IN BED WITH 3 LIT VIA NC ON. PT STATES NO PAIN AND NO COMPLAINTS AT THIS TIME. CALL LIGHT IS WITHIN REACH.
--- NOTE | 2022-04-09 00:11 | NUR ---
Pt has been quiet throughout the shift and been resting in her bed. This nurse and a PCT helped the pt to the bedside commode. Pt exhibited extreme weakness, she did not appear to be bearing much if any weight on her legs. Pt had a medium, soft BM. Pt expressed thanks to staff for helping her but is "disappointed" in herself because she requires help. Pt has had no complaints of pain throughout the shift. All other needs met at this time, call light within reach.
[2022-04-09 05:37] VITALS: BP 96/69; PULSE 108; TEMP 97.8
--- NOTE | 2022-04-09 08:40 | NUR ---
PT LAYING IN BED WITH 3LIT VIA NC ON. PT STATES THAT SHE HAS TO USE RESTROOM. PT WAS ASSITED TO USE BEDSIDE POTTY. PT WAS ABLE TO USE SLIDE BOARD AND GET ONTO TOLIET WITH MINIMAL ASSIT. PT THEN ABLE TO USE WALKER TO STAND AND PULL PANTS DOWN. DID ASSIT PT WITH THIS. PT ABLE TO USE BOARD TO GET BACK INTO BED. PT STATES NO OTHER NEEDS OR CONCERNS AT THIS TIME. PT STATES "IM JUST GOING TO FINISH MY BREAKFAST." CALL LIGHT IS WITHIN REACH.
--- NOTE | 2022-04-09 10:18 | NUR ---
Follow-up visit; Patient and her family thanked Supervisor Mold Yard for looking in on her and keeping her in Supervisor Mold Yard's prayers.
--- NOTE | 2022-04-09 15:02 | NUR ---
Patient provided team conference notes. Notes reviewed and questions answered. Informed the patient that [facility] can accept for SNF care post stay. Educated her on that they would need $7,650 (30 days) at the time of admission. Therapy would be $75 peer 15 minutes per type. This would be billed separately. This information is emailed to patients per his request.
[2022-04-09 16:57] VITALS: BP 97/65; PULSE 103; TEMP 98.1
--- NOTE | 2022-04-09 19:24 | NUR ---
PT STATES THAT SHE NEEDS TO USE RESTROOM. ASSISTED PT TO USE BEDSIDE TOLIET. PT WAS ABLE TO USE SLIDE BOARD. PT ABLE TO VOID 100ML OF URINE. PT HELPED BACK TO BED. 3LIT VIA NC ON. PT STATES NO OTHER NEEDS AT THIS TIME. CALL LIGHT IS WITHIN REACH.
--- NOTE | 2022-04-09 20:00 | NUR ---
PM ASSESSMENT COMPLETE. PT LYING IN BED RESTING. REPORTS NO NEEDS AT THIS TIME. GEL APPLIED TO RIGHT ANKLE PER EMAR, PT STATES ANKLE HAS BEEN PAINFUL/TENDER FOR SEVERAL DAYS BUT GEL IS HELPING. O2 AT 3L VIA NC. WILL CONTINUE TO MONITOR.
[2022-04-10 05:33] VITALS: BP 95/67; PULSE 106; TEMP 98.7
--- NOTE | 2022-04-10 06:54 | NUR ---
shift report received from MELISSA Hyatt
--- NOTE | 2022-04-10 08:30 | NUR ---
resting in bed aftr having had breakfast, full assessment completed, see interventions for further info, denies needs at this time
--- NOTE | 2022-04-10 09:16 | NUR ---
physical therapy in to work with patient
--- NOTE | 2022-04-10 10:25 | NUR ---
physical therapy in to work with patient, to therapy room for group
--- NOTE | 2022-04-10 11:36 | NUR ---
returned from group therapy, assisted onto bedside commode and then back to bed
--- NOTE | 2022-04-10 13:06 | NUR ---
occupational therapy in to work with patient
--- NOTE | 2022-04-10 13:23 | NUR ---
TAMMY spoke to patients this morning. Encouraged him to reach out to the patients insurance company to see what her SNF coverage is. Dex states that he is planning on going to [place] today to put the money down. Informed him that she may not leave till early next week. Dex verbalized his understanding. Message left for Leanne at [facility] that he was going to come by later today.
--- NOTE | 2022-04-10 14:15 | NUR ---
back to bed after working with occupational therapy
--- NOTE | 2022-04-10 16:08 | NUR ---
resting in bed ooking at her tablet
--- NOTE | 2022-04-10 16:45 | NUR ---
in bd waiting for supper
[2022-04-10 17:50] VITALS: BP 80/57; PULSE 80; TEMP 98.9
--- NOTE | 2022-04-10 20:00 | NUR ---
PT RESTING IN BED. 2:1 ASSIST TO BSC. PT HAD BM WITH VOID. BACK TO BED. CALL LIGHT IN REACH. BED ALARM SET.
--- NOTE | 2022-04-11 01:17 | NUR ---
ASSISTED 2:1 TO BSC. VOIDED. NOTED BLOODY URINE. NOTIFIED HOSPITALIST. SEE NEW ORDERS.
[2022-04-11 05:47] VITALS: BP 87/65; PULSE 101; TEMP 97.9
--- NOTE | 2022-04-11 05:52 | NUR ---
PT RESTING AT THIS TIME. O2 SAT 87% ON 3L. O2 UP TO 4L AND NOW O2 SAT 92%.
[2022-04-11 06:55] LABS: HEMATOCRIT 37.2 % (37.0-47.0); MEAN CELL VOLUME 85 fl (80.0-100.0); MEAN CORPUSCULAR HEMOGLOBIN 25 pg (27-31); MEAN CORPUSCULAR HGB CONC 30 g/dl (33.0-37.0); MEAN PLATELET VOLUME 9.8 fl (7.4-10.4); PLATELET COUNT 221 K/mm3 (130-400); RED BLOOD COUNT 4.38 M/mm3 (4.10-5.30); REDCELL DISTRIBUTION WIDTH-CV 24.1 % (11.5-14.5)
[2022-04-11 07:27] LABS: EOSINOPHIL 3 % (0-4); LYMPHOCYTE 13 % (20.0-51.0); NEUTROPHILS 76 % (42.0-75.2); PLATELET ESTIMATE NORMAL (NORMAL)
[2022-04-11 07:28] LABS: ANISOCYTOSIS 3+; BURR CELLS 1+; HYPOCHROMIA 3+
[2022-04-11 07:30] LABS: OVALOCYTES 1+
--- NOTE | 2022-04-11 08:04 | NUR ---
Shift report received from shift production supervisor RN. Pt. resting with both eyes closed. HOB elevated approx 30 degrees. Call light is within her reach
--- NOTE | 2022-04-11 09:19 | NUR ---
Follow-up visit; Patient thanked logistics research engineer for looking in on her. Sally states that Veterinary Surgery Technician is appreciated. Veterinary Surgery Technician wishes her well and offers God's blessings for healing.
--- NOTE | 2022-04-11 10:22 | NUR ---
Skin assessed to lower spine. Area closed and skin is blanchable. Clean Allevyn dressing applied for protection/pressure relief. Air mattress remains on bed.
[2022-04-11 13:01] LABS: MUCOUS Present (NOT PRESENT); PH 5 (5-8); SQUAMOUS EPITHELIAL None Seen /hpf (0-10); URINE APPEARANCE Cloudy (CLEAR/HAZY); URINE BACTERIA Many /hpf (NONE SEEN); URINE BILIRUBIN Negative (NEGATIVE); URINE BLOOD 3+ (NEGATIVE); URINE COLOR Amber (YELLOW); URINE GLUCOSE Negative (NEGATIVE); URINE KETONE Negative (NEGATIVE); URINE LEUKOCYTE ESTERASE 3+ (NEGATIVE); URINE NITRATE Negative (NEGATIVE); URINE PROTEIN(semi-quant) 2+ (NEGATIVE); URINE RBC >50 /hpf (0-2); URINE UROBILINOGEN Negative (NEGATIVE)
[2022-04-11 13:05] LABS: COLLECTION METHOD CLEAN CATCH
--- NOTE | 2022-04-11 13:30 | NUR ---
TAMMY spoke with Leanne at [facility]. She states that the patients dropped a check off to them this morning paying for the first 30 days. Informed her that we would be looking at next week for discharge. Leanne states that they already have a few admissions scheduled for Thursday so Thursday would work better for them. IPR director notified.
--- NOTE | 2022-04-11 15:15 | NUR ---
Portacath re-accessed today by nsg. supervisor rubber covering per physician order. 19G 1in. needle inserted. Has good blood return.
[2022-04-11 16:05] LABS: CREATININE, serum 0.65 mg/dL (0.57-1.11); POTASSIUM 4.4 mmol/L (3.5-4.5)
--- NOTE | 2022-04-11 17:26 | NUR ---
Pt resting in bed. Toes are noted to be purple in color. She reports some tingling in some of her toes. She reports a hx of this r/t to her neuropathy. VS WNL except for a soft BP. She denies pain or discomfort at this time. is at the bedside for dinner. Dr. Hdez notified of discoloration in toes. Call light is within her reach
[2022-04-11 17:33] VITALS: BP 82/58; PULSE 100; TEMP 98.9
[2022-04-12 05:53] VITALS: BP 82/56; PULSE 102; TEMP 97.5
[2022-04-12 06:32] LABS: BASO # 0.1 K/mm3 (0.0-0.2); BASO % 0.7 % (0.0-2.0); EOS # 0.2 K/mm3 (0.0-0.7); EOS % 2.1 % (0.0-4.0); GRAN # 7.4 K/mm3 (1.4-6.5); GRAN % 76.7 % (42.2-75.2); LYMPH # 1.1 K/mm3 (1.2-3.4); MEAN CELL VOLUME 83 fl (80.0-100.0); MEAN CORPUSCULAR HGB CONC 30 g/dl (33.0-37.0); MEAN PLATELET VOLUME 9.9 fl (7.4-10.4); MONO # 0.8 K/mm3 (0.1-0.6); MONO % 8.4 % (1.7-9.3); PLATELET COUNT 258 K/mm3 (130-400); RED BLOOD COUNT 3.77 M/mm3 (4.10-5.30); REDCELL DISTRIBUTION WIDTH-CV 23.8 % (11.5-14.5)
[2022-04-12 06:36] LABS: HEMATOCRIT 31.1 % (37.0-47.0); HEMOGLOBIN 9.3 g/dl (12.5-16.0); MEAN CORPUSCULAR HEMOGLOBIN 25 pg (27-31)
--- NOTE | 2022-04-12 07:00 | NUR ---
Shift report received from plastics process hand RN. Pt. awake and lying supine in bed. HOB elevated approx 30 degrees. She denies pain or discomfort. Denies further needs. Call light is within her reach
--- NOTE | 2022-04-12 11:14 | NUR ---
Pt resting in bed. Declined group therapy this morning. Denies pain or discomfort at this time. Denies further needs. Call light is within her reach
[2022-04-12 17:40] VITALS: BP 98/66; PULSE 97; TEMP 97.9
[2022-04-13 06:02] VITALS: BP 107/72; PULSE 100; TEMP 97.6
--- NOTE | 2022-04-13 06:32 | NUR ---
up to BSC with 1 assist using stand/pivot with GB/ walker, requested oxycodone x1 @HS, slept well.
--- NOTE | 2022-04-13 08:00 | NUR ---
Patient sitting up in bed eating breakfast. A&Ox3. VSS 3.5L NC O2, no reported SOB. Port CDI. Reports discomfort in feet. Voltaren gel applied to feet. Kpad on abdomen. Call light within reach. Bed alarm on
[2022-04-13 17:21] VITALS: BP 102/70; PULSE 98; TEMP 97.9
--- NOTE | 2022-04-13 17:37 | NUR ---
Patient laying in bed eatting dinner, A&Ox3. VSS 4L NC O2, no reported SOB. Patient more awake today and had no complaints of pain. IV CDI. Patient sat in the wheelchair and tolerated well. Kpad at the bedside. Call light within reach. Bed alarm on
[2022-04-14 06:05] VITALS: BP 86/62; PULSE 108; TEMP 97.9
--- NOTE | 2022-04-14 06:45 | NUR ---
Shift report received from clinical biochemist RN. Pt. awake and lying in bed with HOB elevated approx 30 degrees. Denies pain or discomfort. Denies further needs at this time. Call light is within her reach
[2022-04-14 06:51] LABS: CALCIUM 9.3 mg/dL (8.4-10.2); CREATININE, serum 0.67 mg/dL (0.57-1.11); POTASSIUM 4.3 mmol/L (3.5-4.5)
--- NOTE | 2022-04-14 08:52 | NUR ---
Pt. resting in bed. Denies pain or discomfort. Voltaren gel applied to rt. ankle as prescribed. Portacath with good blood return; dsg is CDI. She denies further needs at this time. Call light is within her reach
--- NOTE | 2022-04-14 09:47 | NUR ---
Call received from [facility]. Urine positive for ESBL klebsiella pneumoniae. Contact prec. initiated per infection control.
--- NOTE | 2022-04-14 10:49 | NUR ---
Call received from Dr. Causey. He plans to do a phone consult with patient. Verbal permission obtained from pt. and her . Pt's cell phone number provided to Dr. Causey
[2022-04-14 14:31] VITALS: TEMP 97.9
--- NOTE | 2022-04-14 14:37 | NUR ---
Clinical updates faxed to [facility]. Attempt made to contact Leanne x3 with no success. Message left. IPR director needing to know if they will still be able to accept the patient while on contact precautions for her UTI in addition to IV antibiotics. Will continue to attemtp to reach.
--- NOTE | 2022-04-14 15:34 | NUR ---
Pt. resting supine in bed. Air mattress on. HOB elevated approx 30 degrees. Pt. c/o feeling cold. Afebrile. Warm blanket provided. She denies having pain or discomfort. Call light is within her reach
--- NOTE | 2022-04-14 15:54 | NUR ---
TAMMY spoke with Leanne at [facility] who states that the patient coming over on contact precautions and iv antibiotics is fine. Arrangement made for their transportation to pick the patient up at 1100. IPR director notified. Patient's contacted and notified of plan for tomorrow. Dex is in agreement with the plan. No other needs at this time.
[2022-04-14 16:48] VITALS: BP 92/67; PULSE 102; TEMP 97.9
--- NOTE | 2022-04-14 20:00 | NUR ---
Patient is resting in bed, alert and oriented X 4 soft BP, Tachycardic 100's. 3L O2 NC. Seems weak, and has difficulty moving BLE. Continues with cough, prn provided. Assessment completed, medications given, no other needs at this time. Call light within reach.
--- NOTE | 2022-04-15 02:03 | NUR ---
Patient complains of right hip pain. PRN Provided.
--- NOTE | 2022-04-15 05:48 | NUR ---
Patient had intensive pain in her legs. PRN provided. Continues with cough. She had intermitent resting. Report will be given to day RN.
[2022-04-15 05:58] VITALS: BP 76/39; PULSE 100; TEMP 97.6
[2022-04-15 06:26] LABS: BASO # 0.1 K/mm3 (0.0-0.2); BASO % 0.6 % (0.0-2.0); EOS # 0.2 K/mm3 (0.0-0.7); EOS % 2.4 % (0.0-4.0); GRAN # 7.7 K/mm3 (1.4-6.5); LYMPH % 9.9 % (20.0-51.0); MEAN CELL VOLUME 85 fl (80.0-100.0); MEAN CORPUSCULAR HGB CONC 29 g/dl (33.0-37.0); MEAN PLATELET VOLUME 10.3 fl (7.4-10.4); MONO # 0.7 K/mm3 (0.1-0.6); MONO % 7.2 % (1.7-9.3); PLATELET COUNT 281 K/mm3 (130-400); RED BLOOD COUNT 3.78 M/mm3 (4.10-5.30); REDCELL DISTRIBUTION WIDTH-CV 24.5 % (11.5-14.5)
[2022-04-15 06:34] LABS: HEMATOCRIT 32.3 % (37.0-47.0); HEMOGLOBIN 9.2 g/dl (12.5-16.0); MEAN CORPUSCULAR HEMOGLOBIN 24 pg (27-31)
[2022-04-15 06:39] LABS: CALCIUM 9.4 mg/dL (8.4-10.2); CREATININE, serum 0.61 mg/dL (0.57-1.11); MAGNESIUM 1.7 mg/dL (1.6-2.6); POTASSIUM 4.3 mmol/L (3.5-4.5)
--- NOTE | 2022-04-15 08:32 | NUR ---
PATIENT ALERT AND ORIENTED. PATIENT HAD LOW BLOOD PRESSURE BUT ASYMPTOMATIC. RIGHT CHEST PORT. TOOK MORNING MEDICATIONS WELL. NO NEW CONCERNS. PATIENT IS READY TO DISCHARGE.
[2022-04-15 09:08] VITALS: BP 87/62
--- NOTE | 2022-04-15 09:19 | NUR ---
Patients blood pressure dropped this morning. Collaborated with who would like to observe the patient another night. Contact made with Keke [facility]weeney [place] to notify of the above.
[2022-04-15 10:22] VITALS: BP 107/60
--- NOTE | 2022-04-15 13:23 | NUR ---
Clinical updates faxed to Keke at [facility].
[2022-04-15 18:00] VITALS: BP 102/71; PULSE 110; TEMP 97.6
--- NOTE | 2022-04-15 19:50 | NUR ---
Patient is resting in bed, alert and oriented x 4, complains of irritation in her right hand. specially in the skin of the thumb. Cleaned and covered with gauze to avoid friction. Skin reddened and sensible to water. Assessment completed, medications provided. No other needs at thist time. Call light within reach.
--- NOTE | 2022-04-16 00:51 | NUR ---
Patient complains of BLE pain, PRN provided. She continues feeling uncomfortable and asking every 5 minutes for something else to see if it helps with the pain. Repositioned, a pillow was placed under her legs, the heat pad was started. Pain is not relieved. A second dose of pain med was provided. Hospitalist has been notified.
[2022-04-16 05:17] VITALS: BP 74/59; PULSE 102; TEMP 97.6
--- NOTE | 2022-04-16 06:01 | NUR ---
Patient has had pain along the night in her right lower extremity. PRN provided. She was able to sleep after the second dose. BP still low. No symptoms expressed "I feel as the usual". Report will be given to day RN.
--- NOTE | 2022-04-16 07:08 | NUR ---
Shift report received from night assistant RN. Pt. sleeping in bed. HOB elevated approx 30 degrees. Call light is within her reach
--- NOTE | 2022-04-16 11:01 | NUR ---
Notified Keke at [facility] that the patient is ok to discharge today. Clinical updates and discharge orders faxed to Keke. Covid swab requested. [facility] accepts today and Keke states that transportation can be here at 1300 to pick the patient up. Clinical team, patient and patients updated. All are in agreement with discharge plan for today to [facility]. Discharge plan: [facility] @ 1300
[2022-04-16] MEDS ORDERED: MONUROL 3 GM3 G/PKT PO (11:21)
[2022-04-16] MEDS ORDERED: ROBAXIN 50500 MG/TAB PO (11:21)
[2022-04-16] MEDS ORDERED: VOLTAREN GEL 1%1 TU TP (11:23)
[2022-04-16] MEDS ORDERED: TYLENOL 325MG325 MG PO (11:24)
[2022-04-16] MEDS ORDERED: NORCO 325 MG-7.1 TAB PO (11:24)
[2022-04-16] MEDS ORDERED: ROBITUSSIN100 MG/5 M PO (11:26)
[2022-04-16] MEDS ORDERED: MAG-OX 400400 MG/TAB PO (11:26)
[2022-04-16] MEDS ORDERED: FENTANYL 12MCG TD (11:28)
--- NOTE | 2022-04-16 12:40 | NUR ---
Report called to Pam at [facility]
--- NOTE | 2022-04-16 13:12 | NUR ---
Pt escorted off unit via wheelchair and was escorted by [facility] transportation staff and spouse. Discharge Summary, Health Summary given to transportation. Right chest portacath de-accessed without difficulty or trauma
--- NOTE | 2022-04-17 15:47 | NUR ---
Discharge QIM scores were reviewed by the team. Code of 4 chosen for toilet hygiene was determined by team discussion to be the most usual performance for this patient during the assessment period. Code of 5 chosen for toileting transfers was determined by team discussion to be the most usual performance for this patient during the assessment period. Code of 4 chosen for shower/bathe self was determined by team discussion to be the most usual performance before interventions for this patient during the assessment period. Code of 4 chosen for lower body dressing was determined by team discussion to be the most usual performance for this patient during the assessment period. Code of 3 chosen for sit to lying was determined by team discussion to be the most usual performance before interventions for this patient during the assessment period. Code of 4 for sit to stand was determined by team discussion to be the most usual performance for this patient during the assessment period.--Jade Marks, PD
== END 2022-04-16 13:02 | DRG 291 ==
PROVIDERS: Internal Medicine; Nurse Practitioner Family; Physician Assistant; ADMIT Physical Medicine & Rehabilitation Sports Medicine
DX: I50.20 Unspecified systolic (congestive) heart failure (principal); I26.09 Other pulmonary embolism with acute cor pulmonale; J96.21 Acute and chronic respiratory failure with hypoxia; C78.2 Secondary malignant neoplasm of pleura; C79.51 Secondary malignant neoplasm of bone; Z16.24 Resistance to multiple antibiotics; E87.1 Hypo-osmolality and hyponatremia; E87.3 Alkalosis; N39.0 Urinary tract infection, site not specified; E87.2 Acidosis; I11.0 Hypertensive heart disease with heart failure; M84.451D Pathological fracture, right femur, subsequent encounter for fracture with routine healing; I27.24 Chronic thromboembolic pulmonary hypertension; R82.71 Bacteriuria; E11.9 Type 2 diabetes mellitus without complications; F32.A Depression, unspecified; K59.00 Constipation, unspecified; E78.5 Hyperlipidemia, unspecified; Z85.3 Personal history of malignant neoplasm of breast; Z92.3 Personal history of irradiation; Z86.16 Personal history of COVID-19; R26.89 Other abnormalities of gait and mobility; Z79.01 Long term (current) use of anticoagulants; Z86.718 Personal history of other venous thrombosis and embolism; Z73.6 Limitation of activities due to disability; Z79.899 Other long term (current) drug therapy; Z79.84 Long term (current) use of oral hypoglycemic drugs; Z79.891 Long term (current) use of opiate analgesic; Z88.0 Allergy status to penicillin; Z88.5 Allergy status to narcotic agent; Z95.828 Presence of other vascular implants and grafts; R07.89 Other chest pain; M25.571 Pain in right ankle and joints of right foot; R11.2 Nausea with vomiting, unspecified; D64.89 Other specified anemias; I95.9 Hypotension, unspecified
CPT/HCPCS: 99222; 99231-AI; 99232-AI; 99233-AI; J1644; J1940; J2185; J7040; J7131

== ENCOUNTER → 2022-05-01 | Outpatient (CLI) | payer BC ==
[~2022-05-01] MED LIST changes: +ALBUTEROL 0.5% INH; +ALDACTONE 25MG25 M1 PO; +DAZIDOX10 MG PO; +ELIQUIS 5MG PO; +FENTANYL 12MCG TD; +GLUCOPHAGE500 MG/TAB PO; +LASIX 40MG TABL40 MG PO; +LIPITOR 10MG10 MG PO; +MAG-OX 400400 MG/TAB PO; +MIRALAX PA17 GM/Dose PO; +MONUROL 3 GM3 G/PKT PO; +NEURONTIN100 MG/CAP PO; +NORCO 325 MG-7.1 TAB PO; +ROBAXIN 50500 MG/TAB PO; +ROBITUSSIN100 MG/5 M PO; +SENNA/DOCUSATE; +TYLENOL 325MG325 MG PO; +VITAMIN D31000 IU PO; +VOLTAREN GEL 1%1 TU TP
== END ==
LOC: COL.VAS 14:05
DX: Z51.11 Encounter for antineoplastic chemotherapy (principal); C50.411 Malignant neoplasm of upper-outer quadrant of right female breast; I08.3 Combined rheumatic disorders of mitral, aortic and tricuspid valves; J90 Pleural effusion, not elsewhere classified